=== PATIENT | female | born 1960 | race African-American/Black ===

== ENCOUNTER 2016-11-20 15:25 | Inpatient (IN) | payer MEDICARE, OTHER ==
[~2016-11-20] VITALS: Ht 152.4 cm; Wt 61.2 kg
[~2016-11-20 15:25] MED LIST: ALBUTEROL SULF8.5 GM INH; BP MED; DEPRESSION MED; FUROSEMIDE40 MG ORAL; HUMULIN R100 UNIT/1 SUBQ; HYDROCODON-ACE1 EA13 ORAL; ZOCOR10 MG ORAL; metroNIDAZOLE 500mg 100 ML IVPB SCH
[2016-11-20 20:00] VITALS: BP 132/75
[2016-11-20] MEDS ORDERED: METOPROLOL SUCC25 MG ORAL (20:05)
[2016-11-20] MEDS ORDERED: PAXIL20 MG ORAL (20:05)
[2016-11-20] MEDS ORDERED: ASPIRIN EC81 MG ORAL (20:29)
[2016-11-20] MEDS ORDERED: Hydromorphone 0.5mg/0.5ml inj IVP PRN (21:15)
[2016-11-20] MEDS: HYDROmorphone 1mg/ml Carpuject IVP PRN (22:01)
[2016-11-20] MEDS ORDERED: cefTRIAXone 1 GM in D5W 55 ML IVPB SCH (23:00)
[2016-11-21] MEDS: metroNIDAZOLE 500mg 100 ML IVPB SCH ×3 (00:15→17:09)
[2016-11-21] MEDS: NS w/KCl 20mEq 1,000 ML IV SCH ×3 (00:15→21:48)
[2016-11-21] MEDS: HYDROmorphone 1mg/ml Carpuject IVP PRN ×7 (02:00→22:21)
[2016-11-21 04:00] VITALS: BP 131/87
[2016-11-21] MEDS: NovoLOG Insulin Flexpen SUBQ SCH ×4 (06:00→17:29)
[2016-11-21] MEDS ORDERED: NovoLOG Insulin Flexpen SUBQ SCH (06:30)
[2016-11-21 07:15] LABS: BASOPHILS % (AUTO) 0.8 % (0.0-2.0); EOSINOPHILS % (AUTO) 5.8 % (0.0-3.0); LYMPHOCYTES % (AUTO) 33.3 % (20.0-45.0); MEAN CORPUSCULAR HEMOGLOBIN 30.9 PG (27.0-31.0); MEAN CORPUSCULAR HGB CONC 31.2 G/DL (32.0-36.0); MEAN CORPUSCULAR VOLUME 99 FL (80-99); MEAN PLATELET VOLUME 6.1 FL (6.5-10.1); MONOCYTES % (AUTO) 8.5 % (1.0-10.0); NEUTROPHILS % (AUTO) 51.6 % (45.0-75.0); PLATELET COUNT 226 K/UL (150-450); RED BLOOD COUNT 3.04 M/UL (4.20-5.40); RED CELL DISTRIBUTION WIDTH 18.9 % (11.6-14.8); WHITE BLOOD COUNT 5.9 K/UL (4.8-10.8)
[2016-11-21 07:40] LABS: ALBUMIN/GLOBULIN RATIO 1.2 (1.0-2.7); CALCIUM 9.6 mg/dL (8.6-10.2); CREATININE 1.2 mg/dL (0.5-0.9); GLOMERULAR FILTRATION RATE 56.1 mL/min (>60); PHOSPHORUS 3.4 mg/dL (2.5-4.8); POTASSIUM 3.8 mEQ/L (3.4-4.9); TOTAL PROTEIN 6.8 g/dL (6.6-8.7)
[2016-11-21 07:46] LABS: AMYLASE 61 U/L (10-110); LIPASE 19 U/L (< 60)
[2016-11-21 07:48] LABS: PROTHROMBIN TIME 10.2 SEC (9.30-11.50)
[2016-11-21 08:00] VITALS: BP 150/93
[2016-11-21] MEDS: Metoprolol 25mg tab ORAL SCH ×2 (09:05→21:30)
[2016-11-21] MEDS: PARoxetine 20mg tab ORAL SCH (09:05)
--- NOTE | 2016-11-21 09:05 | Diagnostic Imaging Report ---
Indications: Abdominal pain Technique: Continuous helical CT imaging of the abdomen and pelvis was performed with automatic exposure control following administration of oral and intravenous nonionic iodine contrast, on a Siemens sensation [address] scanner. Axial, coronal, and sagittal images were reconstructed at 5 mm slice thickness. CTDI volume(s): 18 mGy Total DLP: 785 mGy-cm Findings: Comparison: None Oral contrast has passed throughout the gastrointestinal tract to the level of the rectum. Entire tract nondilated. Contrast-filled long appendix unremarkable. No obvious mural thickening, adjacent stranding, extraluminal gas or fluid collection. Elongated serpiginous fluid-filled structure measuring 12 mm in maximal diameter resides in the left adnexal region and pelvic cul-de-sac. Liver demonstrates relative enlargement of the lateral segment of its left lobe. Gallbladder absent. Surgical clips in gallbladder fossa. Scattered arterial mural calcifications without obvious flow-limiting stenosis or occlusion, except that much of the left common iliac artery is obscured by artifact from lumbar fusion hardware. Uterus absent. Neither ovary identified. Surgical clip in left anterior hemipelvis. Remainder visualized abdominopelvic anatomy demonstrates no other obvious acute abnormality. Irregular pleural-based linear densities in both lung bases. Multilevel disc space narrowing with marginal osteophyte formation, vacuum phenomenon and lower lumbar, lower thoracic spine. Fusion hardware within the L4-5 and L5-S1 disc spaces. Bilateral pedicle screws within L4-S1, bridged by longitudinal and transverse rods at multiple levels. The central segment of the left L5 pedicle screw resides outside and adjacent to the left lateral margin of the L5 vertebral body. Small metallic density is present within the anterior epidural space of the spinal canal at L5-S1. Laminectomy defect is present at L5. IMPRESSION: No evidence of acute abdominopelvic disease Elongated fluid-filled structure in left adnexal region and pelvic cul-de-sac most likely represents unopacified small bowel loop. Hydrosalpinx not excludable. Previous cholecystectomy, hysterectomy, L4-S1 anterior and posterior fusion Arteriosclerosis without obvious flow-limiting abnormality, though with limitation of evaluation of left common iliac artery as described. Correlate clinically. Pulmonary bibasal subsegmental atelectasis versus scarring This correlates with [facility] preliminary report.
[2016-11-21] MEDS: cefTRIAXone 1 GM in D5W 55 ML IVPB SCH (10:06)
[2016-11-21 11:46] VITALS: BP 168/98
--- NOTE | 2016-11-21 12:17 | General Progress Note ---
Progress Note Progress Note Patient known to me from breast cancer surgery November 12, 2016 left partial mastectomy and axillary lymph node biopsy. Seen in clinic 2 days ago - healing nicely, pathology negative in nodes and no residual tumor in breast. Developed upper abdominal pain radiating to the back with emesis Abdomen soft, mild epigastric tenderness, no guarding or rebound Labs unremarkable CT abd+pelvis - no acute pathology, s/p cholecystectomy Imp. Epigastric pain radiating to the back with emesis R/O penetrating ulcer, pancreatitis despite neg CT and labs Rec: Increase Dilaudid to q3h prn Protonix 40mg IV GI evaluation, possible EGD - discussed with CATHLEEN Oseguera November 21, 2016 12:17
[2016-11-21] MEDS ORDERED: Hydromorphone 0.5mg/0.5ml inj IVP PRN (12:35)
[2016-11-21] MEDS ORDERED: Pantoprazole Inj IVP ONE (12:35)
[2016-11-21 16:03] VITALS: BP 184/107
--- NOTE | 2016-11-21 16:32 | GI Initial Consult Note ---
History of Present Illness General Date patient seen: November 21, 2016 Time patient seen: 16:31 Referring physician: NAHUN ALEXANDER Reason for Consultation: ABDOMINAL PAIN Present Illness HPI HISTORY OF PRESENT ILLNESS: The patient is a 56-year-old female in stable health with breast cancer surgery November 12, 2016 left partial mastectomy and axillary lymph node biopsy. Seen in clinic 2 days ago - healing nicely, pathology negative in nodes and no residual tumor in breast. GI CONSULT: HPI as noted above. GI consulted for abdominal pain possible ulcer. The patient developed upper abdominal pain radiating to the back with emesis. Abdomen soft, mild epigastric tenderness, no guarding or rebound Labs unremarkable CT abd+pelvis - no acute pathology, s/p cholecystectomy Home Meds Reported Medications Aspirin Ec* (ASPIRIN EC*) 81 Mg Tablet.dr, 81 MG ORAL DAILY, TAB 11/20/16 Metoprolol Succinate* (METOPROLOL SUCCINATE*) 25 Mg Tab.er.24h, 25 MG ORAL DAILY , TAB 11/20/16 Paroxetine Hcl* (PAXIL*) 20 Mg Tablet, 20 MG ORAL DAILY, TAB 11/20/16 [Depression Med] No Conflict Check, DAILY 05/15/16 Furosemide* (LASIX*) 40 Mg Tablet, 40 MG ORAL DAILY, TAB 05/15/16 Simvastatin (ZOCOR) 10 Mg Tablet, 10 MG ORAL BEDTIME, TAB 05/15/16 [Bp Med ] No Conflict Check, DAILY 05/15/16 Insulin Regular, Human (HUMULIN R) 100 Unit/1 Ml Vial, 10 UNITS SUBQ AM, VIAL 05/15/16 Discontinued Reported Medications Hydrocodone Bit/Acetaminophen 10-325* (HYDROCODON-ACETAMINOPHN 10-325*) 1 Each Tablet, 1 TAB ORAL Q4H, #40 TAB 0 Refills 11/14/16 Albuterol Sulfate* (ALBUTEROL SULFATE MDI*) 8.5 Gm Hfa.aer.ad, 2 PUFF INH Q3H, # 1 INH 0 Refills 11/12/16 Med list reviewed/reconciled: Yes Allergies: Coded Allergies: NO KNOWN ALLERGIES (Verified Allergy, Unknown, 05/15/16) Patient History History Provided By: Medical Record PMH Narrative OPERATIONS: Coronary artery stent, lumbar surgery, cholecystectomy, hysterectomy, valvoplasty, and mitral stenosis. IMPRESSION: 1. Invasive ductal carcinoma of left breast, two lesions adjacent to upper outer quadrant. 2. History of diabetes. 3. History of hypertension. 4. Status post neoadjuvant chemotherapy. Review of Systems All Other Systems: negative except mentioned in HPI Physical Exam Vital Signs Date Time Temp Pulse Resp B/P Pulse Ox O2 Delivery O2 Flow Rate FiO2 11/20/16 20:00 98.0 58 19 132/75 100 Room Air Sp02 EP Interpretation: reviewed Labs Laboratory Tests Test 11/21/16 05:35 White Blood Count 5.9 K/UL (4.8-10.8) Red Blood Count 3.04 M/UL (4.20-5.40) L Hemoglobin 9.4 G/DL (12.0-16.0) L Hematocrit 30.2 % (37.0-47.0) L Mean Corpuscular Volume 99 FL (80-99) Mean Corpuscular Hemoglobin 30.9 PG (27.0-31.0) Mean Corpuscular Hemoglobin Concent 31.2 G/DL (32.0-36.0) L Red Cell Distribution Width 18.9 % (11.6-14.8) H Platelet Count 226 K/UL (150-450) Mean Platelet Volume 6.1 FL (6.5-10.1) L Neutrophils (%) (Auto) 51.6 % (45.0-75.0) Lymphocytes (%) (Auto) 33.3 % (20.0-45.0) Monocytes (%) (Auto) 8.5 % (1.0-10.0) Eosinophils (%) (Auto) 5.8 % (0.0-3.0) H Basophils (%) (Auto) 0.8 % (0.0-2.0) Prothrombin Time 10.2 SEC (9.30-11.50) Prothromb Time International Ratio 1.0 (0.9-1.1) Activated Partial Thromboplast Time 26 SEC (23-33) Sodium Level 141 mEQ/L (135-145) Potassium Level 3.8 mEQ/L (3.4-4.9) Chloride Level 101 mEQ/L (98-107) Carbon Dioxide Level 25 mEQ/L (20-30) Anion Gap 15 (5-15) Blood Urea Nitrogen 10 mg/dL (7-23) Creatinine 1.2 mg/dL (0.5-0.9) H Estimat Glomerular Filtration Rate 56.1 mL/min (>60) Glucose Level 121 mg/dL (74-106) H Calcium Level 9.6 mg/dL (8.6-10.2) Phosphorus Level 3.4 mg/dL (2.5-4.8) Magnesium Level 2.0 mg/dL (1.7-2.5) Total Bilirubin 0.6 mg/dL (0.0-1.2) Aspartate Amino Transf (AST/SGOT) 14 U/L (5-40) Alanine Aminotransferase (ALT/SGPT) 7 U/L (3-33) Alkaline Phosphatase 120 U/L (35-104) H Total Protein 6.8 g/dL (6.6-8.7) Albumin 3.8 g/dL (3.5-5.2) Globulin 3.0 g/dL Albumin/Globulin Ratio 1.2 (1.0-2.7) Amylase Level 61 U/L (10-110) Lipase 19 U/L (< 60) General Appearance: well appearing, no apparent distress, alert Head: normocephalic EENT: normal ENT inspection Neck: supple Respiratory: normal breath sounds, no respiratory distress Cardiovascular: normal rate Gastrointestinal: normal inspection, non tender, soft Rectal: deferred Genitourinary: no CVA tenderness Musculoskeletal: normal inspection, back normal, digits/nails normal Neurologic: normal inspection, alert, oriented x3, responsive Psychiatric: normal inspection, judgement/insight normal, memory normal Skin: normal inspection, normal color, no rash, warm/dry Lymphatic: normal inspection, no adenopathy Current Medications Current Medications Medications (Trade) Dose Ordered Sig/Argenis Route PRN Reason Start Time Stop Time Status Last Admin Dose Admin Ceftriaxone Sodium/Dextrose (Rocephin/D5W) 55 ml @ 110 mls/hr Q24H IVPB 11/21/16 09:00 11/28/16 08:59 11/21/16 10:06 Clonidine HCl (Catapres) 0.1 mg Q6H PRN ORAL SBP > 160 11/21/16 15:00 12/21/16 14:59 11/21/16 16:00 Dextrose STAT PRN IV Hypoglycemia 11/20/16 21:15 12/20/16 21:14 Hydromorphone HCl (Dilaudid) 0.5 mg Q4H PRN IVP Mild Pain (Pain Scale 1-3) 11/21/16 12:35 11/27/16 21:14 Hydromorphone HCl (Dilaudid) 1 mg Q3H PRN IVP PAIN 4-10 11/21/16 13:00 11/28/16 12:59 11/21/16 16:00 Insulin Aspart Q6HR SUBQ 11/21/16 00:00 12/21/16 00:00 11/21/16 11:59 Metoprolol Tartrate 25 mg 25 mg Q12HR ORAL 11/21/16 09:00 12/21/16 08:59 11/21/16 09:05 Metronidazole (Flagyl) 100 ml @ 100 mls/hr Q8HR@0000,0800,1600 IVPB 11/21/16 00:00 11/28/16 00:00 11/21/16 08:44 Ondansetron HCl (Zofran) 4 mg Q4H PRN IVP Nausea & Vomiting 11/20/16 21:15 12/20/16 21:14 11/21/16 13:01 Pantoprazole (Protonix) 40 mg DAILY IVP 11/22/16 09:00 12/22/16 08:59 Paroxetine HCl (Paxil) 20 mg DAILY ORAL 11/21/16 09:00 12/21/16 08:59 11/21/16 09:05 Sodium Chloride (NS w/KCl 20mEq) 1,000 ml @ 75 mls/hr [id number] IV 11/20/16 23:00 12/20/16 22:59 11/21/16 11:56 GI: Plan Problems: (1) Epigastric pain (2) Encounter for diagnostic endoscopy (3) Breast cancer (4) Anemia (5) Alkaline phosphatase elevation Plan EGD scheduled for tomorrow. - NPO @ [place]. - hold all blood thinners. anemia work up OB stool uncollected, will consider colonoscopy Friday if positive. cont ppi monitor H&H, transfuse prn fu labs Discussed with Dr. Treviño. Thank you for referring this patient, we will follow. Jenni Livingston N.P. November 21, 2016 16:32
[2016-11-21 18:59] VITALS: BP 100/60
[2016-11-21 20:00] VITALS: BP 114/72
--- NOTE | 2016-11-21 23:12 | Consultation ---
History of Present Illness General Date patient seen: November 21, 2016 Referring physician: NAHUN ALEXANDER Reason for Consultation: ABDOMINAL PAIN Present Illness HPI 56 year old female with hx of DM, HTN breast cancer surgery November 12, 2016 left partial mastectomy and axillary lymph node biopsy was taken by paramedics to [facility] with CC of upper abdominal pain radiating to the back with emesis. The initial w/u at [place] was negative, she is transferred to [facility] for further evaluation and treatment Allergies: Coded Allergies: NO KNOWN ALLERGIES (Verified Allergy, Unknown, 05/15/16) Medication History Scheduled Aspirin Ec* (Aspirin Ec*), 81 MG ORAL DAILY, (Reported) Furosemide* (Lasix*), 40 MG ORAL DAILY, (Reported) Insulin Regular, Human (Humulin R), 10 UNITS SUBQ AM, (Reported) Metoprolol Succinate* (Metoprolol Succinate*), 25 MG ORAL DAILY, (Reported) Paroxetine Hcl* (Paxil*), 20 MG ORAL DAILY, (Reported) Simvastatin (Zocor), 10 MG ORAL BEDTIME, (Reported) [Bp Med ], DAILY, (Reported) [Depression Med], DAILY, (Reported) Discontinued Medications Albuterol Sulfate* (Albuterol Sulfate Mdi*), 2 PUFF INH Q3H, (Reported) Discontinued Reason: Pt stopped taking med Hydrocodone Bit/Acetaminophen 10-325* (Hydrocodon-Acetaminophn 10-325*), 1 TAB ORAL Q4H, (Reported) Discontinued Reason: Pt stopped taking med Patient History Healthcare decision maker pt A&Ox4 Resuscitation status Full Code Advanced Directive on File No Past Medical/Surgical History Past Medical/Surgical History: (1) Diabetes mellitus, type II (2) CAD (coronary artery disease) (3) Breast cancer Review of Systems Gastrointestinal: Reports: abdominal pain Physical Exam General Appearance: WD/WN, cachetic Lines, tubes and drains: peripheral HEENT: normocephalic, atraumatic Neck: non-tender, normal alignment Respiratory/Chest: chest wall non-tender, lungs clear Cardiovascular/Chest: normal peripheral pulses Abdomen: normal bowel sounds Genitourinary/Rectal: normal genital exam Extremities: normal range of motion Skin Exam: normal pigmentation Neurologic: forepart reducer II-XII grossly normal Last 24 Hour Vital Signs Date Time Temp Pulse Resp B/P Pulse Ox O2 Delivery O2 Flow Rate FiO2 11/21/16 21:30 52 114/72 11/21/16 20:00 97.0 46 18 114/72 98 Room Air 11/21/16 18:59 60 16 100/60 100 Room Air 11/21/16 16:30 97.3 11/21/16 16:03 97.3 54 20 184/107 98 Room Air 11/21/16 16:00 180/100 11/21/16 11:46 97.5 50 20 168/98 98 Room Air 11/21/16 10:26 97.9 11/21/16 09:05 54 131/87 11/21/16 08:00 97.3 69 20 150/93 97 Room Air 11/21/16 04:00 97.9 54 19 131/87 99 Room Air Intake and Output 11/20/16 11/21/16 19:00 07:00 Intake Total 535 ml Balance 535 ml IV Total 535 ml # Voids 4 # Bowel Movements 2 Laboratory Tests Test 11/21/16 05:35 White Blood Count 5.9 K/UL (4.8-10.8) Red Blood Count 3.04 M/UL (4.20-5.40) L Hemoglobin 9.4 G/DL (12.0-16.0) L Hematocrit 30.2 % (37.0-47.0) L Mean Corpuscular Volume 99 FL (80-99) Mean Corpuscular Hemoglobin 30.9 PG (27.0-31.0) Mean Corpuscular Hemoglobin Concent 31.2 G/DL (32.0-36.0) L Red Cell Distribution Width 18.9 % (11.6-14.8) H Platelet Count 226 K/UL (150-450) Mean Platelet Volume 6.1 FL (6.5-10.1) L Neutrophils (%) (Auto) 51.6 % (45.0-75.0) Lymphocytes (%) (Auto) 33.3 % (20.0-45.0) Monocytes (%) (Auto) 8.5 % (1.0-10.0) Eosinophils (%) (Auto) 5.8 % (0.0-3.0) H Basophils (%) (Auto) 0.8 % (0.0-2.0) Prothrombin Time 10.2 SEC (9.30-11.50) Prothromb Time International Ratio 1.0 (0.9-1.1) Activated Partial Thromboplast Time 26 SEC (23-33) Sodium Level 141 mEQ/L (135-145) Potassium Level 3.8 mEQ/L (3.4-4.9) Chloride Level 101 mEQ/L (98-107) Carbon Dioxide Level 25 mEQ/L (20-30) Anion Gap 15 (5-15) Blood Urea Nitrogen 10 mg/dL (7-23) Creatinine 1.2 mg/dL (0.5-0.9) H Estimat Glomerular Filtration Rate 56.1 mL/min (>60) Glucose Level 121 mg/dL (74-106) H Calcium Level 9.6 mg/dL (8.6-10.2) Phosphorus Level 3.4 mg/dL (2.5-4.8) Magnesium Level 2.0 mg/dL (1.7-2.5) Total Bilirubin 0.6 mg/dL (0.0-1.2) Aspartate Amino Transf (AST/SGOT) 14 U/L (5-40) Alanine Aminotransferase (ALT/SGPT) 7 U/L (3-33) Alkaline Phosphatase 120 U/L (35-104) H Total Protein 6.8 g/dL (6.6-8.7) Albumin 3.8 g/dL (3.5-5.2) Globulin 3.0 g/dL Albumin/Globulin Ratio 1.2 (1.0-2.7) Amylase Level 61 U/L (10-110) Lipase 19 U/L (< 60) Height (Feet): 5 Weight (Pounds): 135 Medications Current Medications Medications (Trade) Dose Ordered Sig/Argenis Route PRN Reason Start Time Stop Time Status Last Admin Dose Admin Ceftriaxone Sodium/Dextrose (Rocephin/D5W) 55 ml @ 110 mls/hr Q24H IVPB 11/21/16 09:00 11/28/16 08:59 11/21/16 10:06 Clonidine HCl (Catapres) 0.1 mg Q6H PRN ORAL SBP > 160 11/21/16 15:00 12/21/16 14:59 11/21/16 16:00 Dextrose STAT PRN IV Hypoglycemia 11/20/16 21:15 12/20/16 21:14 Hydromorphone HCl (Dilaudid) 0.5 mg Q4H PRN IVP Mild Pain (Pain Scale 1-3) 11/21/16 12:35 11/27/16 21:14 Hydromorphone HCl (Dilaudid) 1 mg Q3H PRN IVP PAIN 4-10 11/21/16 13:00 11/28/16 12:59 11/21/16 22:21 Insulin Aspart Q6HR SUBQ 11/21/16 00:00 12/21/16 00:00 11/21/16 17:29 Metoprolol Tartrate 25 mg 25 mg Q12HR ORAL 11/21/16 09:00 12/21/16 08:59 11/21/16 21:30 Metronidazole (Flagyl) 100 ml @ 100 mls/hr Q8HR@0000,0800,1600 IVPB 11/21/16 00:00 11/28/16 00:00 11/21/16 17:09 Ondansetron HCl (Zofran) 4 mg Q4H PRN IVP Nausea & Vomiting 11/20/16 21:15 12/20/16 21:14 11/21/16 13:01 Pantoprazole (Protonix) 40 mg DAILY IVP 11/22/16 09:00 12/22/16 08:59 Paroxetine HCl (Paxil) 20 mg DAILY ORAL 11/21/16 09:00 12/21/16 08:59 11/21/16 09:05 Sodium Chloride (NS w/KCl 20mEq) 1,000 ml @ 75 mls/hr [id number] IV 11/20/16 23:00 12/20/16 22:59 11/21/16 21:48 Assessment/Plan Problem List: (1) Abdominal pain ICD Codes: R10.9 - Unspecified abdominal pain SNOMED: 23076022 (2) Nausea & vomiting ICD Codes: R11.2 - Nausea with vomiting, unspecified SNOMED: 55041292 (3) CAD (coronary artery disease) ICD Codes: I25.10 - Atherosclerotic heart disease of tetlin coronary artery without angina pectoris SNOMED: 35114129 (4) Breast cancer ICD Codes: C50.919 - Malignant neoplasm of unspecified site of unspecified female breast SNOMED: 874873328 (5) HTN (hypertension) ICD Codes: I10 - Essential (primary) hypertension SNOMED: 31361934 Assessment/Plan NPO IV fluids symptomatic treatment GI evaluation sliding scale, with insulin coverage. check electrolytes, amylase in am WILY KABA November 21, 2016 23:12
[2016-11-22] VITALS (8 sets, daily range): BP systolic 110–151; BP diastolic 62–87
[2016-11-22] MEDS: metroNIDAZOLE 500mg 100 ML IVPB SCH ×3 (00:20→16:25)
[2016-11-22] MEDS: NovoLOG Insulin Flexpen SUBQ SCH ×4 (00:25→18:00)
--- NOTE | 2016-11-22 01:16 | History and Physical Report ---
DATE OF ADMISSION: 11/21/2016 CHIEF COMPLAINT: The patient is a 56-year-old female, who presents with a chief complaint of stomach pain, nausea, and vomiting. HISTORY OF PRESENT ILLNESS: The patient has a history of invasive ductal cell cancer of the left breast. The patient is status post lumpectomy on 11/12/2016 at [facility]. The patient is currently undergoing chemotherapy with Dr. Gayle. The patient states that she began to experience abdominal pain on 11/18/2016. This has been increasing over the last four days. The patient then began to experience nausea and vomiting yesterday. The patient initially presented to [facility] emergency room. A CT scan of the abdomen was essentially within normal limits. The patient is transferred to [facility] for insurance purposes. The patient was admitted for epigastric pain, nausea, and vomiting. PAST MEDICAL HISTORY: Significant for, 1. Invasive ductal cell carcinoma of the left breast, diagnosed in April 2016. The patient is status post lumpectomy and is currently on chemotherapy by Dr. Gayle. 2. Type 2 diabetes. 3. Hypertension. 4. Asthma. 5. Coronary artery disease, status post stent placement x2. 6. Hypercholesterolemia. 7. Chronic renal failure. PAST SURGICAL HISTORY: Significant for, 1. Laparoscopic cholecystectomy in 1997. 2. Lumbar spinal fusion in 2013. 3. Port-A-Cath placement for chemotherapy in 2015. 4. Left breast lumpectomy and axillary lymph node dissection on 11/12/2016. CURRENT MEDICATIONS: 1. Aspirin 81 mg one tablet p.o. daily. 2. Lasix 40 mg one tablet p.o. daily. 3. Regular insulin 10 units subcutaneously every morning. 4. Toprol 25 mg one tablet p.o. daily. 5. Paxil 20 mg one tablet p.o. daily. 6. Zocor 10 mg one tablet p.o. at bedtime. ALLERGIES: No known drug allergies. SOCIAL HISTORY: The patient is single. The patient is disabled. The patient denies tobacco use having quit 10 years ago. The patient admits to rare alcohol use. REVIEW OF SYSTEMS: Constitutional: The patient denies weight loss or weight gain. The patient denies fevers or chills. HEENT: The patient denies ear or throat pain. Cardiovascular: The patient denies palpitations or chest pain. Chest: The patient denies wheezing or shortness of breath. Abdomen: The patient complains of epigastric pain, nausea, and vomiting as above. The patient denies diarrhea or constipation. Genitourinary: The patient denies dysuria or increased frequency of urination. Neuromuscular: The patient seizures or generalized weakness. PHYSICAL EXAMINATION: VITAL SIGNS: Temperature 97.9 degrees, respirations 20, pulse 50 to 54, and blood pressure 131/87. GENERAL: The is a well-developed and well-nourished female, in no apparent distress. HEENT: Eyes, pupils are equal and responsive to light and accommodation. Extraocular movements are intact. NECK: Supple without lymphadenopathy. CHEST: Lungs are clear to auscultation bilaterally without wheezes or rales. CARDIOVASCULAR: Regular rhythm and rate. S1 and S2 are normal without murmurs, rubs, or gallops. ABDOMEN: Soft and nondistended with positive bowel sounds. There is tenderness to palpation in the epigastric region. There is no rebound or guarding noted. EXTREMITIES: Negative for clubbing, cyanosis, or edema. RECTAL: Refused. GENITAL: Refused. NEUROLOGIC: Cranial nerves II through XII are grossly intact without focal deficits. Motor strength is 5/5 bilaterally. Deep tendon reflexes are 2+ plantar. LABORATORY STUDIES: WBC 5.9, hemoglobin 9.4, hematocrit 30.2, and platelets 226,000. Sodium 141, potassium 3.8, chloride 101, CO2 25, BUN 10, creatinine 1.2, and glucose 121. Alkaline phosphatase 120. CT scan of the abdomen and pelvis was reported as no acute abdominopelvic disease. ASSESSMENT: This is a 56-year-old female. 1. Epigastric pain. 2. Nausea and vomiting. 3. Left breast cancer. 4. Coronary artery disease. 5. Diabetes type 2. 6. Hypertension. 7. Hypercholesterolemia. 8. Chronic renal failure. TREATMENT: 1. Epigastric pain/nausea. A Gastroenterology consultation has been obtained with Dr. Jared Treviño. We will follow recommendations of Gastroenterology. The patient may require endoscopy during this hospitalization. 2. Left breast cancer. The patient is status post lumpectomy. The patient is currently undergoing chemotherapy by Dr. Gayle. We will follow recommendations of Hematology/Oncology. 3. Coronary artery disease. The patient is status post stent placement x2. 4. Hypertension. Continue metoprolol as above. 5. Hypercholesteremia. Continue Zocor as above. 6. Chronic renal failure. Sammy Chin M.D. DR: FILIPPO JOB#: [id number] CC:
[2016-11-22] MEDS: HYDROmorphone 1mg/ml Carpuject IVP PRN ×7 (01:34→21:32)
[2016-11-22 07:30] LABS: EOSINOPHILS % (AUTO) 7.2 % (0.0-3.0); LYMPHOCYTES % (AUTO) 33.9 % (20.0-45.0); MEAN CORPUSCULAR HEMOGLOBIN 30.9 PG (27.0-31.0); MEAN CORPUSCULAR HGB CONC 31.1 G/DL (32.0-36.0); MEAN CORPUSCULAR VOLUME 100 FL (80-99); MEAN PLATELET VOLUME 6.8 FL (6.5-10.1); MONOCYTES % (AUTO) 7.9 % (1.0-10.0); NEUTROPHILS % (AUTO) 49.9 % (45.0-75.0); PLATELET COUNT 219 K/UL (150-450); RED CELL DISTRIBUTION WIDTH 18.6 % (11.6-14.8); WHITE BLOOD COUNT 5.4 K/UL (4.8-10.8)
[2016-11-22 07:41] LABS: INR 1.1 (0.9-1.1); PROTHROMBIN TIME 10.7 SEC (9.30-11.50)
[2016-11-22 08:11] LABS: CALCIUM 9.3 mg/dL (8.6-10.2); CREATININE 1.2 mg/dL (0.5-0.9); GLOMERULAR FILTRATION RATE 56.1 mL/min (>60); POTASSIUM 4.1 mEQ/L (3.4-4.9)
[2016-11-22] MEDS: Pantoprazole Inj IVP SCH (08:34)
[2016-11-22] MEDS: Metoprolol 25mg tab ORAL SCH ×2 (08:43→21:36)
[2016-11-22] MEDS: PARoxetine 20mg tab ORAL SCH (08:45)
[2016-11-22] MEDS: cefTRIAXone 1 GM in D5W 55 ML IVPB SCH (09:40)
--- NOTE | 2016-11-22 09:56 | Pulmonology Progress Note ---
Assessment/Plan Assessment/Plan ASSESSMENT epigastric pain left breast Ca s/p partial mastectomy with axillary node biopsy anemia elevated alkaline phosphate HTN DM PLAN OF CARE MS floor pain management CT A/P No evidence of acute abdominopelvic disease empiric antibiotics epigastric pain with emesis and radiation to the back R/O ulcer, pancreatitis ( neg CT and labs) GI follows elevated CEA EGD today stool OB not collected yet, if positive. GI will consider colonoscopy IVF anemia workup with stable iron, continue PPI monitor HH and transfuse prn surgery follows s/p recent partial mastectomy, pathology negative in nodes and no residual tumor in breast BP management with BB and optimize as needed BS management with SS of insulin case discussed and evaluated by supervising physician Subjective Allergies: Coded Allergies: NO KNOWN ALLERGIES (Verified Allergy, Unknown, 05/15/16) Subjective still with intermittent abdominal pain , radiating to the back no n/v/ EGD pending for today Objective Last 24 Hour Vital Signs Date Time Temp Pulse Resp B/P Pulse Ox O2 Delivery O2 Flow Rate FiO2 11/22/16 08:43 75 167/95 11/22/16 04:00 97.3 59 20 110/72 99 11/22/16 00:00 97.7 47 20 114/71 100 Room Air 11/21/16 21:30 52 114/72 11/21/16 20:00 97.0 46 18 114/72 98 Room Air 11/21/16 18:59 60 16 100/60 100 Room Air 11/21/16 16:30 97.3 11/21/16 16:03 97.3 54 20 184/107 98 Room Air 11/21/16 16:00 180/100 11/21/16 11:46 97.5 50 20 168/98 98 Room Air 11/21/16 10:26 97.9 Intake and Output 11/21/16 11/22/16 19:00 07:00 Intake Total 555 ml 875 ml Balance 555 ml 875 ml Intake Oral 480 ml IV Total 75 ml 875 ml # Voids 2 3 # Bowel Movements 3 General Appearance: no acute distress, other - A/A/O x 3 AA female in NAD HEENT: normocephalic, atraumatic, anicteric Respiratory/Chest: lungs clear, no respiratory distress, no accessory muscle use Breasts: other - left breast with partial mastectomy, healing Cardiovascular: normal peripheral pulses, normal rate, regular rhythm, no JVD Abdomen: normal bowel sounds - diffused tenderness, no rebound, no guarding , no organomegaly Extremities: no edema Neurologic/Psychiatric: no motor/sensory deficits, alert, oriented x 3, responsive, normal mood/affect Musculoskeletal: normal muscle bulk Microbiology Date/Time Source Procedure Growth Status 11/21/16 13:00 Stool Clostridium difficile Toxin Assay - Final Complete 11/21/16 00:00 Rectum VRE Culture - Final Enterococcus Faecium - Vre Complete Laboratory Tests 11/22/16 05:05: White Blood Count 5.4, Red Blood Count 2.80L, Hemoglobin 8.6L, Hematocrit 27.8L , Mean Corpuscular Volume 100H, Mean Corpuscular Hemoglobin 30.9, Mean Corpuscular Hemoglobin Concent 31.1L, Red Cell Distribution Width 18.6H, Platelet Count 219, Mean Platelet Volume 6.8, Neutrophils (%) (Auto) 49.9, Lymphocytes (%) (Auto) 33.9, Monocytes (%) (Auto) 7.9, Eosinophils (%) (Auto) 7.2H, Basophils (%) (Auto) 1.0, Reticulocyte Count [Pending], Prothrombin Time 10.7, Prothromb Time International Ratio 1.1, Activated Partial Thromboplast Time 27, Sodium Level 136, Potassium Level 4.1, Chloride Level 99, Carbon Dioxide Level 22, Anion Gap 15, Blood Urea Nitrogen 13, Creatinine 1.2H, Estimat Glomerular Filtration Rate 56.1, Glucose Level 90, Calcium Level 9.3, Iron Level 46, Total Iron Binding Capacity 275, Percent Iron Saturation 17, Unsaturated Iron Binding 229, Ferritin 53, Carcinoembryonic Antigen 4.8H, Vitamin B12 Level 540, Folate [Pending], Thyroid Stimulating Hormone (TSH) 2.000 , Free Thyroxine 1.18 Current Medications Medications (Trade) Dose Ordered Sig/Argenis Route PRN Reason Start Time Stop Time Status Last Admin Dose Admin Ceftriaxone Sodium/Dextrose (Rocephin/D5W) 55 ml @ 110 mls/hr Q24H IVPB 11/21/16 09:00 11/28/16 08:59 11/22/16 09:40 Clonidine HCl (Catapres) 0.1 mg Q6H PRN ORAL SBP > 160 11/21/16 15:00 12/21/16 14:59 11/21/16 16:00 Dextrose STAT PRN IV Hypoglycemia 11/20/16 21:15 12/20/16 21:14 Hydromorphone HCl (Dilaudid) 0.5 mg Q4H PRN IVP Mild Pain (Pain Scale 1-3) 11/21/16 12:35 11/27/16 21:14 Hydromorphone HCl (Dilaudid) 1 mg Q3H PRN IVP PAIN 4-10 11/21/16 13:00 11/28/16 12:59 11/22/16 08:33 Insulin Aspart Q6HR SUBQ 11/21/16 00:00 12/21/16 00:00 11/22/16 00:25 Metoprolol Tartrate 25 mg 25 mg Q12HR ORAL 11/21/16 09:00 12/21/16 08:59 11/22/16 08:43 Metronidazole (Flagyl) 100 ml @ 100 mls/hr Q8HR@0000,0800,1600 IVPB 11/21/16 00:00 11/28/16 00:00 11/22/16 08:04 Ondansetron HCl (Zofran) 4 mg Q4H PRN IVP Nausea & Vomiting 11/20/16 21:15 12/20/16 21:14 11/21/16 13:01 Pantoprazole (Protonix) 40 mg DAILY IVP 11/22/16 09:00 12/22/16 08:59 11/22/16 08:34 Paroxetine HCl (Paxil) 20 mg DAILY ORAL 11/21/16 09:00 12/21/16 08:59 11/21/16 09:05 Sodium Chloride (NS w/KCl 20mEq) 1,000 ml @ 75 mls/hr [id number] IV 11/20/16 23:00 12/20/16 22:59 11/21/16 21:48 Catalina Flores NP ([facility]) November 22, 2016 09:56
--- NOTE | 2016-11-22 10:56 | General Progress Note ---
Progress Note Progress Note Continues afebrile and having persistent epigastric pain radiating to the back. Abdomen soft, scant epigastric tenderness Imp. Epigastric pain radiating to back ? etiology Plan: GI to evaluate and do EGD today CATHLEEN WAGNER November 22, 2016 10:56
--- NOTE | 2016-11-22 13:15 | Pre-Procedure Note/Attestation ---
Pre-Procedure Note/Attestation Complete Prior to Procedure Planned Procedure: not applicable Procedure Narrative: egd Indications for Procedure Pre-Operative Diagnosis: anemia, abd pain Attestation I attest that I discussed the nature of the procedure; its benefits; risks and complications; and alternatives (and the risks and benefits of such alternatives ), prior to the procedure, with the patient (or the patient's legal life assurance representative). I attest that, if there was a reasonable possibility of needing a blood transfusion, the patient (or the patient's legal life assurance representative) was given the [facility] standardized written summary, pursuant to the Juanjose Angelica Blood Safety Act ([place] Health and Safety Code # 1645, as amended). I attest that I re-evaluated the patient just prior to the surgery and that there has been no change in the patient's H&P, except as documented below: CHRISTIANO MCRAE November 22, 2016 13:15
[2016-11-22] MEDS ORDERED: NS 550ML IV ONE (13:25)
[2016-11-22] MEDS ORDERED: Propofol 10mg/ml 20ml IV ONE (13:25)
--- NOTE | 2016-11-22 13:50 | Anethesia Preoperative Eval ---
Anesthesia Pre-op PMH/ROS General Date of Evaluation: November 22, 2016 Time of Evaluation: 13:24 Anesthesiologist: elise ASA Score: ASA 3 Mallampati Score Class I : Soft palate, uvula, fauces, pillars visible Class II: Soft palate, uvula, fauces visible Class III: Soft palate, base of uvula visible Class IV: Only hard plate visible Mallampati Classification: Class II Surgeon: yohannes Diagnosis: abdominal pain Surgical Procedure: egd Anesthesia History: none Allergies: Coded Allergies: NO KNOWN ALLERGIES (Verified Allergy, Unknown, 05/15/16) Past Medical History Cardiovascular: Reports: CAD Endocrine: Reports: DM Musculoskeletal/Integumentary: Reports: DDD - spine fuion Other: other - breast Ca, chemo Hep C Anesthesia Pre-op Phys. Exam Physician Exam Last Vital Signs Date Time Temp Pulse Resp B/P Pulse Ox O2 Delivery O2 Flow Rate FiO2 11/22/16 12:15 97.6 50 19 140/87 99 Room Air Airway Exam Mallampati Score: Class II Teeth: missing Anesthesia Pre-op A/P Labs Hematology Test 11/22/16 05:05 White Blood Count 5.4 K/UL (4.8-10.8) Red Blood Count 2.80 M/UL (4.20-5.40) L Hemoglobin 8.6 G/DL (12.0-16.0) L Hematocrit 27.8 % (37.0-47.0) L Mean Corpuscular Volume 100 FL (80-99) H Mean Corpuscular Hemoglobin 30.9 PG (27.0-31.0) Mean Corpuscular Hemoglobin Concent 31.1 G/DL (32.0-36.0) L Red Cell Distribution Width 18.6 % (11.6-14.8) H Platelet Count 219 K/UL (150-450) Mean Platelet Volume 6.8 FL (6.5-10.1) Neutrophils (%) (Auto) 49.9 % (45.0-75.0) Lymphocytes (%) (Auto) 33.9 % (20.0-45.0) Monocytes (%) (Auto) 7.9 % (1.0-10.0) Eosinophils (%) (Auto) 7.2 % (0.0-3.0) H Basophils (%) (Auto) 1.0 % (0.0-2.0) Reticulocyte Count 3.3 % (0.0-2.0) H Coagulation Test 11/22/16 05:05 Prothrombin Time 10.7 SEC (9.30-11.50) Prothromb Time International Ratio 1.1 (0.9-1.1) Activated Partial Thromboplast Time 27 SEC (23-33) Chemistry Test 11/22/16 05:05 Sodium Level 136 mEQ/L (135-145) Potassium Level 4.1 mEQ/L (3.4-4.9) Chloride Level 99 mEQ/L (98-107) Carbon Dioxide Level 22 mEQ/L (20-30) Anion Gap 15 (5-15) Blood Urea Nitrogen 13 mg/dL (7-23) Creatinine 1.2 mg/dL (0.5-0.9) H Estimat Glomerular Filtration Rate 56.1 mL/min (>60) Glucose Level 90 mg/dL (74-106) Calcium Level 9.3 mg/dL (8.6-10.2) Iron Level 46 ug/dL (37-145) Total Iron Binding Capacity 275 ug/dL (250-400) Percent Iron Saturation 17 % (15-50) Unsaturated Iron Binding 229 ug/dL (112-346) Ferritin 53 ng/mL (13-150) Carcinoembryonic Antigen 4.8 ng/mL H Vitamin B12 Level 540 pg/mL (211-946) Folate Pending Thyroid Stimulating Hormone (TSH) 2.000 uIU/mL (0.300-4.500) Free Thyroxine 1.18 ng/dL (0.86-1.85) Risk Assessment & Plan Plan: propofol Status Change Before Surgery: Maninder Salvador MD November 22, 2016 13:50
--- NOTE | 2016-11-22 13:51 | Immediate Post-Op Evaluation ---
Immediate Post-Op Evalulation Immediate Post-Op Evalulation Date of Evaluation: November 22, 2016 Time of Evaluation: 14:10 IV Fluids: 400 Blood Pressure Systolic: 132 Blood Pressure Diastolic: 67 Pulse Rate: 67 Respiratory Rate: 24 O2 Sat by Pulse Oximetry: 100 Temperature (Fahrenheit): 97.1 Pain Score (1-10): 0 Nausea: No Vomiting: No Complications none Patient Status: awake, patent, none Hydration Status: adequate Maninder Garduno MD November 22, 2016 13:51
--- NOTE | 2016-11-22 13:52 | 48 Hour Post Anesthesia Eval ---
Post Anesthesia Evaluation Date of Evaluation: November 22, 2016 Time of Evaluation: 14:30 Blood Pressure Systolic: 147 0: 76 Pulse Rate: 49 Respiratory Rate: 20 Temperature (Fahrenheit): 97.4 O2 Sat by Pulse Oximetry: 100 Airway: patent Nausea: No Vomiting: No Pain Intensity: 0 Hydration Status: adequate Cardiopulmonary Status: stable Mental Status/LOC: patient returned to baseline Follow-up Care/Observations: n/a Post-Anesthesia Complications: tolerated well Follow-up care needed: N/A Maninder Garduno MD November 22, 2016 13:52
[2016-11-22] MEDS: NS w/KCl 20mEq 1,000 ML IV SCH (14:50)
--- NOTE | 2016-11-22 17:52 | Internal Med Progress Note ---
Subjective Date of Service: November 22, 2016 Physician Name Sammy Fall Attending Physician Nicholas Kovacs MD Current Medications Medications (Trade) Dose Ordered Sig/Argenis Route PRN Reason Start Time Stop Time Status Last Admin Dose Admin Ceftriaxone Sodium/Dextrose (Rocephin/D5W) 55 ml @ 110 mls/hr Q24H IVPB 11/21/16 09:00 11/28/16 08:59 11/22/16 09:40 Clonidine HCl 0.1 mg 0.1 mg Q6H PRN ORAL SBP > 160 11/21/16 15:00 12/21/16 14:59 11/21/16 16:00 Dextrose STAT PRN IV Hypoglycemia 11/20/16 21:15 12/20/16 21:14 Diphenhydramine HCl (Benadryl) 25 mg Q6H PRN IVP Itching 11/22/16 16:45 12/22/16 16:44 Heparin Sodium (Porcine) (Heparin 5000 units/ml) 5,000 units EVERY 12 HOURS SUBQ 11/22/16 21:00 12/22/16 20:59 Hydromorphone HCl (Dilaudid) 0.5 mg Q4H PRN IVP Mild Pain (Pain Scale 1-3) 11/21/16 12:35 11/27/16 21:14 Hydromorphone HCl (Dilaudid) 1 mg Q3H PRN IVP PAIN 4-10 11/21/16 13:00 11/28/16 12:59 11/22/16 14:49 Insulin Aspart Q6HR SUBQ 11/21/16 00:00 12/21/16 00:00 11/22/16 00:25 Metoprolol Tartrate 25 mg 25 mg Q12HR ORAL 11/21/16 09:00 12/21/16 08:59 11/22/16 08:43 Metronidazole (Flagyl) 100 ml @ 100 mls/hr Q8HR@0000,0800,1600 IVPB 11/21/16 00:00 11/28/16 00:00 11/22/16 16:25 Ondansetron HCl (Zofran) 4 mg Q4H PRN IVP Nausea & Vomiting 11/20/16 21:15 12/20/16 21:14 11/21/16 13:01 Pantoprazole (Protonix) 40 mg DAILY IVP 11/22/16 09:00 12/22/16 08:59 11/22/16 08:34 Paroxetine HCl (Paxil) 20 mg DAILY ORAL 11/21/16 09:00 12/21/16 08:59 11/21/16 09:05 Sodium Chloride (NS w/KCl 20mEq) 1,000 ml @ 75 mls/hr [id number] IV 11/20/16 23:00 12/20/16 22:59 11/22/16 14:50 Sodium Chloride (Sodium Chloride 1000ml bag) 1,000 ml @ 10 mls/hr Q24H IVLG 11/22/16 13:52 11/22/16 18:30 Allergies: Coded Allergies: NO KNOWN ALLERGIES (Verified Allergy, Unknown, 05/15/16) ROS Limited/Unobtainable: No Constitutional: Reports: no symptoms HEENT: Reports: no symptoms Cardiovascular: Reports: no symptoms Respiratory: Reports: no symptoms Gastrointestinal/Abdominal: Reports: abdominal pain Genitourinary: Reports: no symptoms Neurologic/Psychiatric: Reports: no symptoms Subjective 56 YO F admitted with epigastric pain. S/P endoscopt Objective Last Vital Signs Date Time Temp Pulse Resp B/P Pulse Ox O2 Delivery O2 Flow Rate FiO2 11/22/16 16:15 98.1 52 21 132/67 100 Room Air 11/22/16 14:05 2.0 Laboratory Tests Test 11/22/16 05:05 White Blood Count 5.4 K/UL (4.8-10.8) Red Blood Count 2.80 M/UL (4.20-5.40) L Hemoglobin 8.6 G/DL (12.0-16.0) L Hematocrit 27.8 % (37.0-47.0) L Mean Corpuscular Volume 100 FL (80-99) H Mean Corpuscular Hemoglobin 30.9 PG (27.0-31.0) Mean Corpuscular Hemoglobin Concent 31.1 G/DL (32.0-36.0) L Red Cell Distribution Width 18.6 % (11.6-14.8) H Platelet Count 219 K/UL (150-450) Mean Platelet Volume 6.8 FL (6.5-10.1) Neutrophils (%) (Auto) 49.9 % (45.0-75.0) Lymphocytes (%) (Auto) 33.9 % (20.0-45.0) Monocytes (%) (Auto) 7.9 % (1.0-10.0) Eosinophils (%) (Auto) 7.2 % (0.0-3.0) H Basophils (%) (Auto) 1.0 % (0.0-2.0) Reticulocyte Count 3.3 % (0.0-2.0) H Prothrombin Time 10.7 SEC (9.30-11.50) Prothromb Time International Ratio 1.1 (0.9-1.1) Activated Partial Thromboplast Time 27 SEC (23-33) Sodium Level 136 mEQ/L (135-145) Potassium Level 4.1 mEQ/L (3.4-4.9) Chloride Level 99 mEQ/L (98-107) Carbon Dioxide Level 22 mEQ/L (20-30) Anion Gap 15 (5-15) Blood Urea Nitrogen 13 mg/dL (7-23) Creatinine 1.2 mg/dL (0.5-0.9) H Estimat Glomerular Filtration Rate 56.1 mL/min (>60) Glucose Level 90 mg/dL (74-106) Calcium Level 9.3 mg/dL (8.6-10.2) Iron Level 46 ug/dL (37-145) Total Iron Binding Capacity 275 ug/dL (250-400) Percent Iron Saturation 17 % (15-50) Unsaturated Iron Binding 229 ug/dL (112-346) Ferritin 53 ng/mL (13-150) Carcinoembryonic Antigen 4.8 ng/mL H Vitamin B12 Level 540 pg/mL (211-946) Folate Pending Thyroid Stimulating Hormone (TSH) 2.000 uIU/mL (0.300-4.500) Free Thyroxine 1.18 ng/dL (0.86-1.85) Microbiology Date/Time Source Procedure Growth Status 11/21/16 13:00 Stool Clostridium difficile Toxin Assay - Final Complete 11/21/16 00:00 Rectum VRE Culture - Final Enterococcus Faecium - Vre Complete Intake and Output 11/21/16 11/22/16 19:00 07:00 Intake Total 555 ml 875 ml Balance 555 ml 875 ml Intake Oral 480 ml IV Total 75 ml 875 ml # Voids 2 3 # Bowel Movements 3 Objective General: alert, cooperative, no distress, appears stated age Head: normocephalic, without obvious abnormality, atraumatic Eyes: conjunctivae/corneas clear. PERRL, EOM's intact Throat: lips, mucosa, and tongue normal. MMM Neck: supple, symmetrical, trachea midline, and no JVD Lungs: clear to auscultation bilaterally Heart: regular rate and rhythm, S1, S2 normal, no murmur, click, rub or gallop Abdomen: soft, tender to palp epigastric, non-distended, bowel sounds normal; no masses or organomegaly Extremities: extremities normal, atraumatic, no cyanosis or edema Pulses: 2+ and symmetric Skin: skin color, texture, turgor normal; no rashes or lesions Neurologic: grossly normal, no focal deficits Assessment/Plan Problem List: (1) CAD (coronary artery disease) (2) Diabetes mellitus, type II Assessment & Plan: cont novolog sliding scale. (3) HTN (hypertension) Assessment & Plan: cont clonidine and lopressor. (4) Hypercholesteremia (5) Renal failure (6) Nausea & vomiting (7) Epigastric pain Assessment & Plan: S/P endoscopy 11/22/16-see GI note. See surgery note. (8) Breast cancer Status: unchanged SAMMY FALL November 22, 2016 17:52
[2016-11-22] MEDS: DiphenhydrAMINE 50mg/ml Inj IVP PRN (21:31)
[2016-11-22] MEDS: Heparin 5000 units/ml inj SUBQ SCH (21:39)
[2016-11-23] MEDS: HYDROmorphone 1mg/ml Carpuject IVP PRN ×8 (00:33→23:48)
[2016-11-23] MEDS: metroNIDAZOLE 500mg 100 ML IVPB SCH ×4 (00:33→23:47)
[2016-11-23] MEDS: NovoLOG Insulin Flexpen SUBQ SCH ×5 (00:35→23:36)
[2016-11-23] MEDS: DiphenhydrAMINE 50mg/ml Inj IVP PRN ×4 (03:40→23:47)
[2016-11-23] MEDS: NS w/KCl 20mEq 1,000 ML IV SCH ×3 (04:15→20:26)
[2016-11-23 04:45] VITALS: BP 138/78
[2016-11-23 06:12] LABS: EOSINOPHILS % (AUTO) 7.6 % (0.0-3.0); LYMPHOCYTES % (AUTO) 31.3 % (20.0-45.0); MEAN CORPUSCULAR HEMOGLOBIN 31.7 PG (27.0-31.0); MEAN CORPUSCULAR HGB CONC 31.8 G/DL (32.0-36.0); MEAN CORPUSCULAR VOLUME 100 FL (80-99); MEAN PLATELET VOLUME 6.4 FL (6.5-10.1); MONOCYTES % (AUTO) 10.4 % (1.0-10.0); NEUTROPHILS % (AUTO) 49.7 % (45.0-75.0); PLATELET COUNT 220 K/UL (150-450); RED BLOOD COUNT 2.77 M/UL (4.20-5.40); RED CELL DISTRIBUTION WIDTH 19.1 % (11.6-14.8); WHITE BLOOD COUNT 5.8 K/UL (4.8-10.8)
[2016-11-23 06:43] LABS: CREATININE 1.3 mg/dL (0.5-0.9); GLOMERULAR FILTRATION RATE 51.1 mL/min (>60); POTASSIUM 4.5 mEQ/L (3.4-4.9)
[2016-11-23 08:20] VITALS: BP 129/82
[2016-11-23] MEDS: Pantoprazole Inj IVP SCH (08:20)
[2016-11-23] MEDS: Metoprolol 25mg tab ORAL SCH ×2 (08:21→20:10)
[2016-11-23] MEDS: PARoxetine 20mg tab ORAL SCH (08:21)
[2016-11-23] MEDS: Heparin 5000 units/ml inj SUBQ SCH ×2 (08:24→20:23)
[2016-11-23] MEDS: cefTRIAXone 1 GM in D5W 55 ML IVPB SCH (09:44)
--- NOTE | 2016-11-23 09:57 | Endoscopy Procedure Note ---
Endoscopy Procedure Note Indication for Procedure: anemia, abd pain Procedures Performed: EGD Operative Findings/Diagnosis: gastritis Specimen: yes Pt Tolerated Procedure Well: Yes Estimated Blood Loss: none Anesthesiologist: elise Anesthesia: MAC Implant(s) used?: No 50 yrs or older w/o bx or poly: Not Applicable 10yrs. F/U not recommended: Not Applicable CHRISTIANO MCRAE November 23, 2016 09:57
--- NOTE | 2016-11-23 10:02 | General Progress Note ---
Assessment/Plan Problem List: (1) Gastritis ICD Codes: K29.70 - Gastritis, unspecified, without bleeding SNOMED: 0021998 (2) HTN (hypertension) ICD Codes: I10 - Essential (primary) hypertension SNOMED: 43292289 (3) Diabetes mellitus, type II ICD Codes: E11.9 - Type 2 diabetes mellitus without complications SNOMED: 95575319 (4) Anemia ICD Codes: D64.9 - Anemia, unspecified SNOMED: 152074216 (5) Breast cancer ICD Codes: C50.919 - Malignant neoplasm of unspecified site of unspecified female breast SNOMED: 984963032 Assessment/Plan s/p EGd yesterday fu biopsy results ppi daily anemia work up possible colonoscopy on Friday Subjective ROS Limited/Unobtainable: Yes Allergies: Coded Allergies: NO KNOWN ALLERGIES (Verified Allergy, Unknown, 05/15/16) Subjective no event Objective Last 24 Hour Vital Signs Date Time Temp Pulse Resp B/P Pulse Ox O2 Delivery O2 Flow Rate FiO2 11/23/16 08:21 53 129/82 11/23/16 08:20 97.9 53 19 129/82 99 Room Air 11/23/16 07:07 98.1 11/23/16 04:45 98.1 53 20 138/78 100 Room Air 11/22/16 21:36 52 132/67 11/22/16 16:15 98.1 52 21 132/67 100 Room Air 11/22/16 14:26 100 11/22/16 14:25 49 20 98 11/22/16 14:11 97.4 47 20 147/76 100 Room Air 11/22/16 14:08 46 20 151/75 100 Room Air 11/22/16 14:06 67 24 100 11/22/16 14:05 44 20 132/62 100 Nasal Cannula 2.0 11/22/16 14:00 97.4 44 20 136/72 100 Nasal Cannula 2.0 11/22/16 12:15 97.6 50 19 140/87 99 Room Air Intake and Output 11/22/16 11/23/16 19:00 07:00 Intake Total 1340 ml 775 ml Balance 1340 ml 775 ml Intake Oral 385 ml IV Total 955 ml 775 ml # Voids 2 5 Laboratory Tests 11/23/16 05:30: White Blood Count 5.8, Red Blood Count 2.77L, Hemoglobin 8.8L, Hematocrit 27.6L , Mean Corpuscular Volume 100H, Mean Corpuscular Hemoglobin 31.7H, Mean Corpuscular Hemoglobin Concent 31.8L, Red Cell Distribution Width 19.1H, Platelet Count 220, Mean Platelet Volume 6.4L, Neutrophils (%) (Auto) 49.7, Lymphocytes (%) (Auto) 31.3, Monocytes (%) (Auto) 10.4H, Eosinophils (%) (Auto) 7.6H, Basophils (%) (Auto) 1.0, Sodium Level 141, Potassium Level 4.5, Chloride Level 104, Carbon Dioxide Level 24, Anion Gap 13, Blood Urea Nitrogen 16, Creatinine 1.3H, Estimat Glomerular Filtration Rate 51.1, Glucose Level 85, Calcium Level 9.0 Height (Feet): 5 Weight (Pounds): 135 General Appearance: alert EENT: normal ENT inspection Neck: supple Cardiovascular: normal rate Respiratory/Chest: lungs clear Abdomen: normal bowel sounds, non tender, soft Extremities: non-tender CHRISTIANO MCRAE November 23, 2016 10:02
[2016-11-23 12:00] VITALS: BP 145/100
--- NOTE | 2016-11-23 15:03 | Internal Med Progress Note ---
Subjective Date of Service: November 23, 2016 Physician Name Sammy Fall Attending Physician Nicholas Kovacs MD Current Medications Medications (Trade) Dose Ordered Sig/Argenis Route PRN Reason Start Time Stop Time Status Last Admin Dose Admin Ceftriaxone Sodium/Dextrose (Rocephin/D5W) 55 ml @ 110 mls/hr Q24H IVPB 11/21/16 09:00 11/28/16 08:59 11/23/16 09:44 Clonidine HCl (Catapres) 0.1 mg Q6H PRN ORAL SBP > 160 11/21/16 15:00 12/21/16 14:59 11/21/16 16:00 Dextrose STAT PRN IV Hypoglycemia 11/20/16 21:15 12/20/16 21:14 Diphenhydramine HCl (Benadryl) 25 mg Q6H PRN IVP Itching 11/22/16 16:45 12/22/16 16:44 11/23/16 09:45 Heparin Sodium (Porcine) (Heparin 5000 units/ml) 5,000 units EVERY 12 HOURS SUBQ 11/22/16 21:00 12/22/16 20:59 11/23/16 08:24 Hydromorphone HCl (Dilaudid) 0.5 mg Q4H PRN IVP Mild Pain (Pain Scale 1-3) 11/21/16 12:35 11/27/16 21:14 Hydromorphone HCl (Dilaudid) 1 mg Q3H PRN IVP PAIN 4-10 11/21/16 13:00 11/28/16 12:59 11/23/16 12:41 Insulin Aspart Q6HR SUBQ 11/21/16 00:00 12/21/16 00:00 11/23/16 12:05 Metoprolol Tartrate 25 mg 25 mg Q12HR ORAL 11/21/16 09:00 12/21/16 08:59 11/23/16 08:21 Metronidazole (Flagyl) 100 ml @ 100 mls/hr Q8HR@0000,0800,1600 IVPB 11/21/16 00:00 11/28/16 00:00 11/23/16 08:20 Ondansetron HCl (Zofran) 4 mg Q4H PRN IVP Nausea & Vomiting 11/20/16 21:15 12/20/16 21:14 11/23/16 12:41 Pantoprazole (Protonix) 40 mg DAILY IVP 11/22/16 09:00 12/22/16 08:59 11/23/16 08:20 Paroxetine HCl (Paxil) 20 mg DAILY ORAL 11/21/16 09:00 12/21/16 08:59 11/23/16 08:21 Sodium Chloride (NS w/KCl 20mEq) 1,000 ml @ 75 mls/hr [id number] IV 11/20/16 23:00 12/20/16 22:59 11/23/16 04:15 Allergies: Coded Allergies: NO KNOWN ALLERGIES (Verified Allergy, Unknown, 05/15/16) ROS Limited/Unobtainable: No Constitutional: Reports: no symptoms HEENT: Reports: no symptoms Cardiovascular: Reports: no symptoms Respiratory: Reports: no symptoms Gastrointestinal/Abdominal: Reports: abdominal pain, nausea Genitourinary: Reports: no symptoms Neurologic/Psychiatric: Reports: no symptoms Subjective 56 YO F admitted with epigastric pain. S/P endoscopy 11/22/16. Possible colonoscopy on 11/25/16 Objective Last Vital Signs Date Time Temp Pulse Resp B/P Pulse Ox O2 Delivery O2 Flow Rate FiO2 11/23/16 13:11 97.9 11/23/16 12:00 50 18 145/100 100 Room Air 11/22/16 14:05 2.0 Laboratory Tests Test 11/23/16 05:30 White Blood Count 5.8 K/UL (4.8-10.8) Red Blood Count 2.77 M/UL (4.20-5.40) L Hemoglobin 8.8 G/DL (12.0-16.0) L Hematocrit 27.6 % (37.0-47.0) L Mean Corpuscular Volume 100 FL (80-99) H Mean Corpuscular Hemoglobin 31.7 PG (27.0-31.0) H Mean Corpuscular Hemoglobin Concent 31.8 G/DL (32.0-36.0) L Red Cell Distribution Width 19.1 % (11.6-14.8) H Platelet Count 220 K/UL (150-450) Mean Platelet Volume 6.4 FL (6.5-10.1) L Neutrophils (%) (Auto) 49.7 % (45.0-75.0) Lymphocytes (%) (Auto) 31.3 % (20.0-45.0) Monocytes (%) (Auto) 10.4 % (1.0-10.0) H Eosinophils (%) (Auto) 7.6 % (0.0-3.0) H Basophils (%) (Auto) 1.0 % (0.0-2.0) Sodium Level 141 mEQ/L (135-145) Potassium Level 4.5 mEQ/L (3.4-4.9) Chloride Level 104 mEQ/L (98-107) Carbon Dioxide Level 24 mEQ/L (20-30) Anion Gap 13 (5-15) Blood Urea Nitrogen 16 mg/dL (7-23) Creatinine 1.3 mg/dL (0.5-0.9) H Estimat Glomerular Filtration Rate 51.1 mL/min (>60) Glucose Level 85 mg/dL (74-106) Calcium Level 9.0 mg/dL (8.6-10.2) Microbiology Date/Time Source Procedure Growth Status 11/21/16 00:00 Nasal Nares Left MRSA Culture - Final NO METHICILLIN RESISTANT STAPH AUREUS... Complete 11/21/16 13:00 Stool Clostridium difficile Toxin Assay - Final Complete 11/21/16 00:00 Rectum VRE Culture - Final Enterococcus Faecium - Vre Complete Intake and Output 11/22/16 11/23/16 19:00 07:00 Intake Total 1340 ml 850 ml Balance 1340 ml 850 ml Intake Oral 385 ml IV Total 955 ml 850 ml # Voids 2 5 Objective General: alert, cooperative, no distress, appears stated age Head: normocephalic, without obvious abnormality, atraumatic Eyes: conjunctivae/corneas clear. PERRL, EOM's intact Throat: lips, mucosa, and tongue normal. MMM Neck: supple, symmetrical, trachea midline, and no JVD Lungs: clear to auscultation bilaterally Heart: regular rate and rhythm, S1, S2 normal, no murmur, click, rub or gallop Abdomen: soft, tender to palp epigastric, non-distended, bowel sounds normal; no masses or organomegaly Extremities: extremities normal, atraumatic, no cyanosis or edema Pulses: 2+ and symmetric Skin: skin color, texture, turgor normal; no rashes or lesions Neurologic: grossly normal, no focal deficits Assessment/Plan Problem List: (1) CAD (coronary artery disease) (2) Diabetes mellitus, type II Assessment & Plan: cont novolog sliding scale. (3) HTN (hypertension) Assessment & Plan: cont clonidine and lopressor. (4) Hypercholesteremia (5) Renal failure (6) Nausea & vomiting (7) Epigastric pain Assessment & Plan: S/P endoscopy 11/22/16; possible colonoscopy on 11/25/16.- See GI note. See surgery note. (8) Breast cancer Status: not improved SAMMY FALL November 23, 2016 15:03
--- NOTE | 2016-11-23 15:19 | Pulmonology Progress Note ---
Assessment/Plan Assessment/Plan ASSESSMENT epigastric pain left breast Ca s/p partial mastectomy with axillary node biopsy anemia elevated alkaline phosphate HTN DM PLAN OF CARE MS floor pain management CT A/P No evidence of acute abdominopelvic disease empiric antibiotics epigastric pain with emesis and radiation to the back R/O ulcer, pancreatitis ( neg CT and labs) GI follows elevated CEA s/p EGD 11/22 with findings of gastritis stool OB not collected yet, if positive. GI will consider colonoscopy stool C dif negative possible colonoscoopy Friday IVF anemia workup with stable iron, continue PPI monitor HH and transfuse prn surgery follows s/p recent partial mastectomy, pathology negative in nodes and no residual tumor in breast BP management with BB and optimize as needed BS management with SS of insulin case discussed and evaluated by supervising physician Subjective Allergies: Coded Allergies: NO KNOWN ALLERGIES (Verified Allergy, Unknown, 05/15/16) Subjective still with intermittent abdominal pain , radiating to the back no n/v/ s/p EGD with findings of gastritis Objective Last 24 Hour Vital Signs Date Time Temp Pulse Resp B/P Pulse Ox O2 Delivery O2 Flow Rate FiO2 11/23/16 13:11 97.9 11/23/16 12:00 97.3 50 18 145/100 100 Room Air 11/23/16 08:21 53 129/82 11/23/16 08:20 97.9 53 19 129/82 99 Room Air 11/23/16 04:45 98.1 53 20 138/78 100 Room Air 11/22/16 21:36 52 132/67 11/22/16 16:15 98.1 52 21 132/67 100 Room Air Intake and Output 11/22/16 11/23/16 19:00 07:00 Intake Total 1340 ml 850 ml Balance 1340 ml 850 ml Intake Oral 385 ml IV Total 955 ml 850 ml # Voids 2 5 Objective General Appearance: no acute distress, other - A/A/O x 3 AA female in NAD HEENT: normocephalic, atraumatic, anicteric Respiratory/Chest: lungs clear, no respiratory distress, no accessory muscle use Breasts: other - left breast with partial mastectomy, healing Cardiovascular: normal peripheral pulses, normal rate, regular rhythm, no JVD Abdomen: normal bowel sounds - diffused tenderness, no rebound, no guarding , no organomegaly Extremities: no edema Neurologic/Psychiatric: no motor/sensory deficits, alert, oriented x 3, responsive, normal mood/affect Musculoskeletal: normal muscle bulk Microbiology Date/Time Source Procedure Growth Status 11/21/16 00:00 Nasal Nares Left MRSA Culture - Final NO METHICILLIN RESISTANT STAPH AUREUS... Complete 11/21/16 13:00 Stool Clostridium difficile Toxin Assay - Final Complete 11/21/16 00:00 Rectum VRE Culture - Final Enterococcus Faecium - Vre Complete Laboratory Tests 11/23/16 05:30: White Blood Count 5.8, Red Blood Count 2.77L, Hemoglobin 8.8L, Hematocrit 27.6L , Mean Corpuscular Volume 100H, Mean Corpuscular Hemoglobin 31.7H, Mean Corpuscular Hemoglobin Concent 31.8L, Red Cell Distribution Width 19.1H, Platelet Count 220, Mean Platelet Volume 6.4L, Neutrophils (%) (Auto) 49.7, Lymphocytes (%) (Auto) 31.3, Monocytes (%) (Auto) 10.4H, Eosinophils (%) (Auto) 7.6H, Basophils (%) (Auto) 1.0, Sodium Level 141, Potassium Level 4.5, Chloride Level 104, Carbon Dioxide Level 24, Anion Gap 13, Blood Urea Nitrogen 16, Creatinine 1.3H, Estimat Glomerular Filtration Rate 51.1, Glucose Level 85, Calcium Level 9.0 Current Medications Medications (Trade) Dose Ordered Sig/Argenis Route PRN Reason Start Time Stop Time Status Last Admin Dose Admin Ceftriaxone Sodium/Dextrose (Rocephin/D5W) 55 ml @ 110 mls/hr Q24H IVPB 11/21/16 09:00 11/28/16 08:59 11/23/16 09:44 Clonidine HCl (Catapres) 0.1 mg Q6H PRN ORAL SBP > 160 11/21/16 15:00 12/21/16 14:59 11/21/16 16:00 Dextrose STAT PRN IV Hypoglycemia 11/20/16 21:15 12/20/16 21:14 Diphenhydramine HCl (Benadryl) 25 mg Q6H PRN IVP Itching 11/22/16 16:45 12/22/16 16:44 11/23/16 09:45 Heparin Sodium (Porcine) (Heparin 5000 units/ml) 5,000 units EVERY 12 HOURS SUBQ 11/22/16 21:00 12/22/16 20:59 11/23/16 08:24 Hydromorphone HCl (Dilaudid) 0.5 mg Q4H PRN IVP Mild Pain (Pain Scale 1-3) 11/21/16 12:35 11/27/16 21:14 Hydromorphone HCl (Dilaudid) 1 mg Q3H PRN IVP PAIN 4-10 11/21/16 13:00 11/28/16 12:59 11/23/16 12:41 Insulin Aspart Q6HR SUBQ 11/21/16 00:00 12/21/16 00:00 11/23/16 12:05 Metoprolol Tartrate 25 mg 25 mg Q12HR ORAL 11/21/16 09:00 12/21/16 08:59 11/23/16 08:21 Metronidazole (Flagyl) 100 ml @ 100 mls/hr Q8HR@0000,0800,1600 IVPB 11/21/16 00:00 11/28/16 00:00 11/23/16 08:20 Ondansetron HCl (Zofran) 4 mg Q4H PRN IVP Nausea & Vomiting 11/20/16 21:15 12/20/16 21:14 11/23/16 12:41 Pantoprazole (Protonix) 40 mg DAILY IVP 11/22/16 09:00 12/22/16 08:59 11/23/16 08:20 Paroxetine HCl (Paxil) 20 mg DAILY ORAL 11/21/16 09:00 12/21/16 08:59 11/23/16 08:21 Sodium Chloride (NS w/KCl 20mEq) 1,000 ml @ 75 mls/hr Q26I04H IV 11/20/16 23:00 12/20/16 22:59 11/23/16 04:15 [facility]St[facility] CenterCatalina Kirkland NP November 23, 2016 15:19
[2016-11-23 16:00] VITALS: BP 164/95
--- NOTE | 2016-11-23 18:31 | Procedure Note ---
DATE OF PROCEDURE: 11/22/2016 SURGEON: Jared Treviño M.D. PROCEDURE: Upper endoscopy with biopsy. ANESTHESIOLOGIST: Maninder Garduno M.D. INSTRUMENT: Olympus adult flexible upper endoscope. INDICATION: 1. Anemia. 2. Abdominal pain. REASON FOR PROCEDURE: The procedure, risks, benefits, and possible consequences, including hemorrhage, aspiration, perforation and infection, and alternative treatments, were explained to the patient/legal guardian by Dr. Jared Treviño and the patient/legal guardian understood and accepted these risks. DESCRIPTION OF PROCEDURE: After informed consent was obtained and the patient was adequately sedated, Olympus upper endoscope was advanced from mouth into the second portion of duodenum and retroflexion was performed in the stomach. The patient had some focal severe gastritis in the distal body/antrum junction, which was biopsied. The random biopsy also from antrum was obtained to rule out H. pylori infection. The rest of the upper endoscopic examination was grossly within normal limits. There was no evidence of any obvious ulceration, mass, or any other pathology seen. The patient tolerated the procedure very well without any complication. SUMMARY OF FINDINGS: Focal gastritis status post biopsy. RECOMMENDATIONS: Follow up biopsies and treat accordingly. Jared Treviño M.D. DR: MYRIAM JOB#: [id number] CC:
[2016-11-23 20:00] VITALS: BP 120/79
[2016-11-24 04:00] VITALS: BP 119/77
[2016-11-24] MEDS: HYDROmorphone 1mg/ml Carpuject IVP PRN ×6 (04:57→21:14)
[2016-11-24] MEDS: NovoLOG Insulin Flexpen SUBQ SCH ×4 (05:49→23:44)
[2016-11-24 07:07] LABS: CALCIUM 9.2 mg/dL (8.6-10.2); CREATININE 1.3 mg/dL (0.5-0.9); GLOMERULAR FILTRATION RATE 51.1 mL/min (>60); POTASSIUM 4.7 mEQ/L (3.4-4.9)
[2016-11-24 07:21] LABS: BASOPHILS % (AUTO) 1.5 % (0.0-2.0); EOSINOPHILS % (AUTO) 8.7 % (0.0-3.0); LYMPHOCYTES % (AUTO) 30.2 % (20.0-45.0); MEAN CORPUSCULAR HEMOGLOBIN 31.2 PG (27.0-31.0); MEAN CORPUSCULAR HGB CONC 31.6 G/DL (32.0-36.0); MEAN CORPUSCULAR VOLUME 99 FL (80-99); MEAN PLATELET VOLUME 5.9 FL (6.5-10.1); MONOCYTES % (AUTO) 10.5 % (1.0-10.0); NEUTROPHILS % (AUTO) 49.2 % (45.0-75.0); PLATELET COUNT 216 K/UL (150-450); RED BLOOD COUNT 2.93 M/UL (4.20-5.40); RED CELL DISTRIBUTION WIDTH 18.8 % (11.6-14.8); WHITE BLOOD COUNT 5.1 K/UL (4.8-10.8)
--- NOTE | 2016-11-24 07:49 | General Progress Note ---
Assessment/Plan Problem List: (1) Gastritis ICD Codes: K29.70 - Gastritis, unspecified, without bleeding SNOMED: 7574259 (2) HTN (hypertension) ICD Codes: I10 - Essential (primary) hypertension SNOMED: 05642824 (3) Diabetes mellitus, type II ICD Codes: E11.9 - Type 2 diabetes mellitus without complications SNOMED: 12209265 (4) Anemia ICD Codes: D64.9 - Anemia, unspecified SNOMED: 822013754 (5) Breast cancer ICD Codes: C50.919 - Malignant neoplasm of unspecified site of unspecified female breast SNOMED: 867138842 Assessment/Plan fu biopsy results ppi daily anemia work up plan colonoscopy on Friday Subjective ROS Limited/Unobtainable: Yes Allergies: Coded Allergies: NO KNOWN ALLERGIES (Verified Allergy, Unknown, 05/15/16) Subjective no event still c/o abd pain Objective Last 24 Hour Vital Signs Date Time Temp Pulse Resp B/P Pulse Ox O2 Delivery O2 Flow Rate FiO2 11/24/16 04:00 98.4 60 20 119/77 96 Room Air 11/24/16 00:30 98.1 11/23/16 20:10 51 162/95 11/23/16 20:00 98.1 51 20 120/79 98 Room Air 11/23/16 16:11 162/95 11/23/16 16:00 97.7 51 18 164/95 100 Room Air 11/23/16 12:00 97.3 50 18 145/100 100 Room Air 11/23/16 08:21 53 129/82 11/23/16 08:20 97.9 53 19 129/82 99 Room Air Intake and Output 11/23/16 11/24/16 19:00 07:00 Intake Total 1060 ml Balance 1060 ml IV Total 1060 ml # Voids 5 # Bowel Movements 1 Laboratory Tests 11/24/16 05:50: White Blood Count 5.1, Red Blood Count 2.93L, Hemoglobin 9.1L, Hematocrit 28.9L , Mean Corpuscular Volume 99, Mean Corpuscular Hemoglobin 31.2H, Mean Corpuscular Hemoglobin Concent 31.6L, Red Cell Distribution Width 18.8H, Platelet Count 216, Mean Platelet Volume 5.9L, Neutrophils (%) (Auto) 49.2, Lymphocytes (%) (Auto) 30.2, Monocytes (%) (Auto) 10.5H, Eosinophils (%) (Auto) 8.7H, Basophils (%) (Auto) 1.5, Sodium Level 142, Potassium Level 4.7, Chloride Level 105, Carbon Dioxide Level 22, Anion Gap 15, Blood Urea Nitrogen 13, Creatinine 1.3H, Estimat Glomerular Filtration Rate 51.1, Glucose Level 93, Calcium Level 9.2 Height (Feet): 5 Weight (Pounds): 135 General Appearance: alert EENT: normal ENT inspection Neck: supple Cardiovascular: normal rate Respiratory/Chest: decreased breath sounds Abdomen: soft, tender Extremities: non-tender CHRISTIANO MCRAE November 24, 2016 07:49
[2016-11-24] MEDS: DiphenhydrAMINE 50mg/ml Inj IVP PRN ×3 (08:20→21:44)
[2016-11-24] MEDS: metroNIDAZOLE 500mg 100 ML IVPB SCH ×3 (08:20→23:48)
[2016-11-24 08:28] VITALS: BP 160/103
[2016-11-24] MEDS: Metoprolol 25mg tab ORAL SCH ×2 (09:26→21:00)
[2016-11-24] MEDS: Pantoprazole Inj IVP SCH (09:26)
[2016-11-24] MEDS: PARoxetine 20mg tab ORAL SCH (09:26)
[2016-11-24] MEDS: Heparin 5000 units/ml inj SUBQ SCH ×2 (09:27→21:00)
[2016-11-24] MEDS: cefTRIAXone 1 GM in D5W 55 ML IVPB SCH (09:28)
--- NOTE | 2016-11-24 10:46 | Pulmonology Progress Note ---
Assessment/Plan Assessment/Plan ASSESSMENT epigastric pain left breast Ca s/p partial mastectomy with axillary node biopsy anemia elevated alkaline phosphate HTN DM PLAN OF CARE MS floor pain management CT A/P No evidence of acute abdominopelvic disease empiric antibiotics epigastric pain with emesis and radiation to the back R/O ulcer, pancreatitis ( neg CT and labs) GI follows elevated CEA s/p EGD 11/22 with findings of gastritis stool C dif negative colonoscopy on Friday IVF anemia workup with stable iron, continue PPI monitor HH and transfuse prn surgery follows s/p recent partial mastectomy, pathology negative in nodes and no residual tumor in breast BP management with BB and optimize as needed BS management with SS of insulin case discussed and evaluated by supervising physician Subjective Allergies: Coded Allergies: NO KNOWN ALLERGIES (Verified Allergy, Unknown, 05/15/16) Subjective still with intermittent abdominal pain , radiating to the back s/p EGD with findings of gastritis denies n/v/ no SOB, no chest pain Objective Last 24 Hour Vital Signs Date Time Temp Pulse Resp B/P Pulse Ox O2 Delivery O2 Flow Rate FiO2 11/24/16 09:26 53 160/103 11/24/16 08:49 98.2 11/24/16 08:28 98.2 53 18 160/103 97 Room Air 11/24/16 04:00 98.4 60 20 119/77 96 Room Air 11/23/16 20:10 51 162/95 11/23/16 20:00 98.1 51 20 120/79 98 Room Air 11/23/16 16:11 162/95 11/23/16 16:00 97.7 51 18 164/95 100 Room Air 11/23/16 12:00 97.3 50 18 145/100 100 Room Air Intake and Output 11/23/16 11/24/16 19:00 07:00 Intake Total 1060 ml Balance 1060 ml IV Total 1060 ml # Voids 5 # Bowel Movements 1 Objective General Appearance: no acute distress, other - A/A/O x 3 AA female in NAD HEENT: normocephalic, atraumatic, anicteric Respiratory/Chest: lungs clear, no respiratory distress, no accessory muscle use Breasts: other - left breast with partial mastectomy, healing Cardiovascular: normal peripheral pulses, normal rate, regular rhythm, no JVD Abdomen: normal bowel sounds - diffused tenderness, no rebound, no guarding , no organomegaly Extremities: no edema Neurologic/Psychiatric: no motor/sensory deficits, alert, oriented x 3, responsive, normal mood/affect Musculoskeletal: normal muscle bulk Microbiology Date/Time Source Procedure Growth Status 11/21/16 13:00 Stool Clostridium difficile Toxin Assay - Final Complete Laboratory Tests 11/24/16 05:50: White Blood Count 5.1, Red Blood Count 2.93L, Hemoglobin 9.1L, Hematocrit 28.9L , Mean Corpuscular Volume 99, Mean Corpuscular Hemoglobin 31.2H, Mean Corpuscular Hemoglobin Concent 31.6L, Red Cell Distribution Width 18.8H, Platelet Count 216, Mean Platelet Volume 5.9L, Neutrophils (%) (Auto) 49.2, Lymphocytes (%) (Auto) 30.2, Monocytes (%) (Auto) 10.5H, Eosinophils (%) (Auto) 8.7H, Basophils (%) (Auto) 1.5, Sodium Level 142, Potassium Level 4.7, Chloride Level 105, Carbon Dioxide Level 22, Anion Gap 15, Blood Urea Nitrogen 13, Creatinine 1.3H, Estimat Glomerular Filtration Rate 51.1, Glucose Level 93, Calcium Level 9.2 Current Medications Medications (Trade) Dose Ordered Sig/Argenis Route PRN Reason Start Time Stop Time Status Last Admin Dose Admin Bisacodyl (Dulcolax) 20 mg ONCE ONCE ORAL 11/24/16 12:00 11/24/16 12:01 Ceftriaxone Sodium/Dextrose (Rocephin/D5W) 55 ml @ 110 mls/hr Q24H IVPB 11/21/16 09:00 11/28/16 08:59 11/24/16 09:28 Clonidine HCl (Catapres) 0.1 mg Q6H PRN ORAL SBP > 160 11/21/16 15:00 12/21/16 14:59 11/23/16 16:11 Dextrose STAT PRN IV Hypoglycemia 11/20/16 21:15 12/20/16 21:14 Diphenhydramine HCl (Benadryl) 25 mg Q6H PRN IVP Itching 11/22/16 16:45 12/22/16 16:44 11/24/16 08:20 Heparin Sodium (Porcine) (Heparin 5000 units/ml) 5,000 units EVERY 12 HOURS SUBQ 11/22/16 21:00 12/22/16 20:59 11/24/16 09:27 Hydromorphone HCl (Dilaudid) 0.5 mg Q4H PRN IVP Mild Pain (Pain Scale 1-3) 11/21/16 12:35 11/27/16 21:14 Hydromorphone HCl (Dilaudid) 1 mg Q3H PRN IVP PAIN 4-10 11/21/16 13:00 11/28/16 12:59 11/24/16 08:19 Insulin Aspart Q6HR SUBQ 11/21/16 00:00 12/21/16 00:00 11/23/16 18:06 Metoprolol Tartrate 25 mg 25 mg Q12HR ORAL 11/21/16 09:00 12/21/16 08:59 11/24/16 09:26 Metronidazole (Flagyl) 100 ml @ 100 mls/hr Q8HR@0000,0800,1600 IVPB 11/21/16 00:00 11/28/16 00:00 11/24/16 08:20 Ondansetron HCl (Zofran) 4 mg Q4H PRN IVP Nausea & Vomiting 11/20/16 21:15 12/20/16 21:14 11/23/16 12:41 Pantoprazole (Protonix) 40 mg DAILY IVP 11/22/16 09:00 12/22/16 08:59 11/24/16 09:26 Paroxetine HCl (Paxil) 20 mg DAILY ORAL 11/21/16 09:00 12/21/16 08:59 11/24/16 09:26 Polyethylene Glycol/ Electrolytes (Nulytely) 4,000 ml ONCE ONCE ORAL 11/24/16 14:00 11/24/16 14:01 Sodium Chloride (NS w/KCl 20mEq) 1,000 ml @ 75 mls/hr [id number] IV 11/20/16 23:00 12/20/16 22:59 11/23/16 20:26 [facility]Al[facility] HospitalCatalina Kirkland NP November 24, 2016 10:46
[2016-11-24] MEDS ORDERED: Bisacodyl EC 5mg tab ORAL ONE (12:00)
[2016-11-24 12:07] VITALS: BP 141/98
[2016-11-24] MEDS ORDERED: Nulytely 4L ORAL ONE (14:00)
--- NOTE | 2016-11-24 15:34 | Internal Med Progress Note ---
Subjective Date of Service: November 24, 2016 Physician Name Sammy Chin Attending Physician Nicholas Kovacs MD Current Medications Medications (Trade) Dose Ordered Sig/Argenis Route PRN Reason Start Time Stop Time Status Last Admin Dose Admin Ceftriaxone Sodium/Dextrose (Rocephin/D5W) 55 ml @ 110 mls/hr Q24H IVPB 11/21/16 09:00 11/28/16 08:59 11/24/16 09:28 Clonidine HCl (Catapres) 0.1 mg Q6H PRN ORAL SBP > 160 11/21/16 15:00 12/21/16 14:59 11/23/16 16:11 Dextrose STAT PRN IV Hypoglycemia 11/20/16 21:15 12/20/16 21:14 Diphenhydramine HCl (Benadryl) 25 mg Q6H PRN IVP Itching 11/22/16 16:45 12/22/16 16:44 11/24/16 14:33 Heparin Sodium (Porcine) (Heparin 5000 units/ml) 5,000 units EVERY 12 HOURS SUBQ 11/22/16 21:00 12/22/16 20:59 11/24/16 09:27 Hydromorphone HCl (Dilaudid) 0.5 mg Q4H PRN IVP Mild Pain (Pain Scale 1-3) 11/21/16 12:35 11/27/16 21:14 Hydromorphone HCl (Dilaudid) 1 mg Q3H PRN IVP PAIN 4-10 11/21/16 13:00 11/28/16 12:59 11/24/16 14:32 Insulin Aspart Q6HR SUBQ 11/21/16 00:00 12/21/16 00:00 11/24/16 12:15 Metoprolol Tartrate 25 mg 25 mg Q12HR ORAL 11/21/16 09:00 12/21/16 08:59 11/24/16 09:26 Metronidazole (Flagyl) 100 ml @ 100 mls/hr Q8HR@0000,0800,1600 IVPB 11/21/16 00:00 11/28/16 00:00 11/24/16 08:20 Ondansetron HCl (Zofran) 4 mg Q4H PRN IVP Nausea & Vomiting 11/20/16 21:15 12/20/16 21:14 11/23/16 12:41 Pantoprazole (Protonix) 40 mg DAILY IVP 11/22/16 09:00 12/22/16 08:59 11/24/16 09:26 Paroxetine HCl (Paxil) 20 mg DAILY ORAL 11/21/16 09:00 12/21/16 08:59 11/24/16 09:26 Sodium Chloride (NS w/KCl 20mEq) 1,000 ml @ 75 mls/hr [id number] IV 11/20/16 23:00 12/20/16 22:59 11/23/16 20:26 Allergies: Coded Allergies: NO KNOWN ALLERGIES (Verified Allergy, Unknown, 05/15/16) ROS Limited/Unobtainable: No Constitutional: Reports: no symptoms HEENT: Reports: no symptoms Cardiovascular: Reports: no symptoms Respiratory: Reports: no symptoms Gastrointestinal/Abdominal: Reports: abdominal pain Genitourinary: Reports: no symptoms Neurologic/Psychiatric: Reports: no symptoms Subjective 56 YO F admitted with epigastric pain. S/P endoscopy 11/22/16. Await colonoscopy on 11/25/16 Objective Last Vital Signs Date Time Temp Pulse Resp B/P Pulse Ox O2 Delivery O2 Flow Rate FiO2 11/24/16 12:07 97.9 51 18 141/98 100 Room Air 11/22/16 14:05 2.0 Laboratory Tests Test 11/24/16 05:50 White Blood Count 5.1 K/UL (4.8-10.8) Red Blood Count 2.93 M/UL (4.20-5.40) L Hemoglobin 9.1 G/DL (12.0-16.0) L Hematocrit 28.9 % (37.0-47.0) L Mean Corpuscular Volume 99 FL (80-99) Mean Corpuscular Hemoglobin 31.2 PG (27.0-31.0) H Mean Corpuscular Hemoglobin Concent 31.6 G/DL (32.0-36.0) L Red Cell Distribution Width 18.8 % (11.6-14.8) H Platelet Count 216 K/UL (150-450) Mean Platelet Volume 5.9 FL (6.5-10.1) L Neutrophils (%) (Auto) 49.2 % (45.0-75.0) Lymphocytes (%) (Auto) 30.2 % (20.0-45.0) Monocytes (%) (Auto) 10.5 % (1.0-10.0) H Eosinophils (%) (Auto) 8.7 % (0.0-3.0) H Basophils (%) (Auto) 1.5 % (0.0-2.0) Sodium Level 142 mEQ/L (135-145) Potassium Level 4.7 mEQ/L (3.4-4.9) Chloride Level 105 mEQ/L (98-107) Carbon Dioxide Level 22 mEQ/L (20-30) Anion Gap 15 (5-15) Blood Urea Nitrogen 13 mg/dL (7-23) Creatinine 1.3 mg/dL (0.5-0.9) H Estimat Glomerular Filtration Rate 51.1 mL/min (>60) Glucose Level 93 mg/dL (74-106) Calcium Level 9.2 mg/dL (8.6-10.2) Intake and Output 11/23/16 11/24/16 19:00 07:00 Intake Total 1060 ml 75 ml Balance 1060 ml 75 ml IV Total 1060 ml 75 ml # Voids 5 # Bowel Movements 1 Objective General: alert, cooperative, no distress, appears stated age Head: normocephalic, without obvious abnormality, atraumatic Eyes: conjunctivae/corneas clear. PERRL, EOM's intact Throat: lips, mucosa, and tongue normal. MMM Neck: supple, symmetrical, trachea midline, and no JVD Lungs: clear to auscultation bilaterally Heart: regular rate and rhythm, S1, S2 normal, no murmur, click, rub or gallop Abdomen: soft, tender to palp epigastric, non-distended, bowel sounds normal; no masses or organomegaly Extremities: extremities normal, atraumatic, no cyanosis or edema Pulses: 2+ and symmetric Skin: skin color, texture, turgor normal; no rashes or lesions Neurologic: grossly normal, no focal deficits Assessment/Plan Problem List: (1) CAD (coronary artery disease) (2) Diabetes mellitus, type II Assessment & Plan: cont novolog sliding scale. (3) HTN (hypertension) Assessment & Plan: cont clonidine and lopressor. (4) Hypercholesteremia (5) Renal failure (6) Nausea & vomiting (7) Epigastric pain Assessment & Plan: S/P endoscopy 11/22/16; colonoscopy scheduled on Mon .-See GI note. See surgery note. (8) Breast cancer Status: SAMMY Sneed November 24, 2016 15:34
[2016-11-24 16:45] VITALS: BP 155/79
[2016-11-24 20:00] VITALS: BP 158/103
[2016-11-24] MEDS: NS w/KCl 20mEq 1,000 ML IV SCH (20:20)
[2016-11-25] VITALS (8 sets, daily range): BP systolic 117–147; BP diastolic 61–89
[2016-11-25] MEDS: HYDROmorphone 1mg/ml Carpuject IVP PRN ×7 (00:38→23:54)
[2016-11-25] MEDS: DiphenhydrAMINE 50mg/ml Inj IVP PRN ×3 (04:50→20:33)
[2016-11-25] MEDS: NS w/KCl 20mEq 1,000 ML IV SCH ×2 (04:50→23:00)
[2016-11-25] MEDS: NovoLOG Insulin Flexpen SUBQ SCH ×3 (05:55→17:21)
[2016-11-25 06:56] LABS: BASOPHILS % (AUTO) 1.2 % (0.0-2.0); EOSINOPHILS % (AUTO) 9.2 % (0.0-3.0); LYMPHOCYTES % (AUTO) 31.4 % (20.0-45.0); MEAN CORPUSCULAR HEMOGLOBIN 31.2 PG (27.0-31.0); MEAN CORPUSCULAR HGB CONC 31.5 G/DL (32.0-36.0); MEAN CORPUSCULAR VOLUME 99 FL (80-99); MEAN PLATELET VOLUME 6.1 FL (6.5-10.1); MONOCYTES % (AUTO) 11.4 % (1.0-10.0); NEUTROPHILS % (AUTO) 46.8 % (45.0-75.0); PLATELET COUNT 211 K/UL (150-450); RED BLOOD COUNT 2.88 M/UL (4.20-5.40); RED CELL DISTRIBUTION WIDTH 19.3 % (11.6-14.8); WHITE BLOOD COUNT 4.8 K/UL (4.8-10.8)
[2016-11-25 07:34] LABS: CALCIUM 9.2 mg/dL (8.6-10.2); CREATININE 1.4 mg/dL (0.5-0.9); GLOMERULAR FILTRATION RATE 46.9 mL/min (>60); POTASSIUM 4.5 mEQ/L (3.4-4.9)
[2016-11-25] MEDS: metroNIDAZOLE 500mg 100 ML IVPB SCH ×2 (08:36→15:48)
[2016-11-25] MEDS: PARoxetine 20mg tab ORAL SCH (08:36)
[2016-11-25] MEDS: Metoprolol 25mg tab ORAL SCH ×2 (08:36→20:32)
[2016-11-25] MEDS: Pantoprazole Inj IVP SCH (08:36)
[2016-11-25] MEDS: Heparin 5000 units/ml inj SUBQ SCH ×2 (08:37→20:42)
--- NOTE | 2016-11-25 08:37 | General Progress Note ---
Progress Note Progress Note Improving with less pain. To have colonoscopy today. sutures removed from left breast surgery and steristrips applied. Nicely healed. Axilla well healed. Await colonoscopy findings. Will see patient in Breast Clinic in 2 weeks. CATHLEEN WAGNER November 25, 2016 08:37
[2016-11-25] MEDS ORDERED: Propofol 10mg/ml 20ml IV ONE (09:00)
[2016-11-25] MEDS ORDERED: NS 550ML IV ONE (09:05)
--- NOTE | 2016-11-25 09:14 | Pre-Procedure Note/Attestation ---
Pre-Procedure Note/Attestation Complete Prior to Procedure Planned Procedure: not applicable Procedure Narrative: colonoscopy Indications for Procedure Pre-Operative Diagnosis: anemia, abd pain Attestation I attest that I discussed the nature of the procedure; its benefits; risks and complications; and alternatives (and the risks and benefits of such alternatives ), prior to the procedure, with the patient (or the patient's legal corporate representative). I attest that, if there was a reasonable possibility of needing a blood transfusion, the patient (or the patient's legal corporate representative) was given the [facility] standardized written summary, pursuant to the [place] Blood Safety Act ([place] Health and Safety Code # 1645, as amended). I attest that I re-evaluated the patient just prior to the surgery and that there has been no change in the patient's H&P, except as documented below: CHRISTIANO MCRAE November 25, 2016 09:14
[2016-11-25] MEDS ORDERED: Midazolam 2mg/2ml Inj IVP PRN (09:30)
[2016-11-25] MEDS ORDERED: Hydromorphone 0.5mg/0.5ml inj IVP PRN (09:30)
--- NOTE | 2016-11-25 09:30 | Endoscopy Procedure Note ---
Endoscopy Procedure Note Indication for Procedure: anemia Procedures Performed: colonoscopy Operative Findings/Diagnosis: hemorrhoids Specimen: none Pt Tolerated Procedure Well: Yes Estimated Blood Loss: none Anesthesiologist: hansa Anesthesia: MAC Implant(s) used?: No 50 yrs or older w/o bx or poly: Not Applicable 10yrs. F/U not recommended: Not Applicable CHRISTIANO MCRAE November 25, 2016 09:30
--- NOTE | 2016-11-25 09:42 | Anethesia Preoperative Eval ---
Anesthesia Pre-op PMH/ROS General Date of Evaluation: November 25, 2016 Time of Evaluation: 09:11 Anesthesiologist: Silas ASA Score: ASA 3 Mallampati Score Class I : Soft palate, uvula, fauces, pillars visible Class II: Soft palate, uvula, fauces visible Class III: Soft palate, base of uvula visible Class IV: Only hard plate visible Mallampati Classification: Class II Surgeon: Kamila Diagnosis: Anemia, abdominal pain Surgical Procedure: Colonoscopy Family History: no anesthesia problems Allergies: Coded Allergies: NO KNOWN ALLERGIES (Verified Allergy, Unknown, 05/15/16) Medications: see eMAR Past Medical History Cardiovascular: Reports: HTN, Denies: CAD, CO, arrhythmia, other, valve dz Pulmonary: Denies: COPD, ALEXANDER, asthma, other Gastrointestinal/Genitourinary: Denies: CRI, ESRD, GERD, other Neurologic/Psychiatric: Denies: CVA, TIA, dementia, depression/anxiety, other Endocrine: Reports: DM, Denies: hypothyroidism, other, steroids HEENT: Denies: [place] (L), [place] (R), cataract (L), cataract (R), glaucoma, other Hematology/Immune: Reports: anemia, Denies: DVT, bleeding disorder, other Musculoskeletal/Integumentary: Denies: DDD, DJD, OA, RA, edema, other PMH Narrative: Breast CA, HTN, DM PSxH Narrative: Lumpectomy, cholecystectomy, MARIO, Back surgery Anesthesia Pre-op Phys. Exam Physician Exam Last Vital Signs Date Time Temp Pulse Resp B/P Pulse Ox O2 Delivery O2 Flow Rate FiO2 11/25/16 08:36 53 147/88 11/25/16 07:52 97.7 18 95 Room Air 11/22/16 14:05 2.0 Constitutional: NAD Neurologic: CN 2-12 intact Cardiovascular: RRR, no M/R/G Respiratory: CTA Gastrointestinal: S/NT/ND Airway Exam Mallampati Score: Class II MO: full ROM: full Dentures: lower, upper Anesthesia Pre-op A/P Labs Hematology Test 11/25/16 06:05 White Blood Count 4.8 K/UL (4.8-10.8) Red Blood Count 2.88 M/UL (4.20-5.40) L Hemoglobin 9.0 G/DL (12.0-16.0) L Hematocrit 28.5 % (37.0-47.0) L Mean Corpuscular Volume 99 FL (80-99) Mean Corpuscular Hemoglobin 31.2 PG (27.0-31.0) H Mean Corpuscular Hemoglobin Concent 31.5 G/DL (32.0-36.0) L Red Cell Distribution Width 19.3 % (11.6-14.8) H Platelet Count 211 K/UL (150-450) Mean Platelet Volume 6.1 FL (6.5-10.1) L Neutrophils (%) (Auto) 46.8 % (45.0-75.0) Lymphocytes (%) (Auto) 31.4 % (20.0-45.0) Monocytes (%) (Auto) 11.4 % (1.0-10.0) H Eosinophils (%) (Auto) 9.2 % (0.0-3.0) H Basophils (%) (Auto) 1.2 % (0.0-2.0) Chemistry Test 11/25/16 06:05 Sodium Level 140 mEQ/L (135-145) Potassium Level 4.5 mEQ/L (3.4-4.9) Chloride Level 105 mEQ/L (98-107) Carbon Dioxide Level 24 mEQ/L (20-30) Anion Gap 11 (5-15) Blood Urea Nitrogen 11 mg/dL (7-23) Creatinine 1.4 mg/dL (0.5-0.9) H Estimat Glomerular Filtration Rate 46.9 mL/min (>60) Glucose Level 104 mg/dL (74-106) Calcium Level 9.2 mg/dL (8.6-10.2) Risk Assessment & Plan Assessment: Anemia Plan: Colonoscopy Status Change Before Surgery: No Pre-Antibiotics Drug: None CLAIRE HDZ M.D. November 25, 2016 09:42
--- NOTE | 2016-11-25 09:43 | Immediate Post-Op Evaluation ---
Immediate Post-Op Evalulation Immediate Post-Op Evalulation Procedure: Colonoscopy Date of Evaluation: November 25, 2016 Time of Evaluation: 09:45 IV Fluids: 250 Blood Pressure Systolic: 118 Blood Pressure Diastolic: 61 Pulse Rate: 44 Respiratory Rate: 11 O2 Sat by Pulse Oximetry: 100 Temperature (Fahrenheit): 97.9 Pain Score (1-10): 0 Nausea: No Vomiting: No Complications No complication Patient Status: reacts, patent, none Hydration Status: adequate Drug: None CLAIRE HDZ M.D. November 25, 2016 09:43
[2016-11-25] MEDS: cefTRIAXone 1 GM in D5W 55 ML IVPB SCH (10:33)
--- NOTE | 2016-11-25 11:29 | Internal Med Progress Note ---
Subjective Date of Service: November 25, 2016 Physician Name Sammy Fall Attending Physician Nicholas Kovacs MD Current Medications Medications (Trade) Dose Ordered Sig/Argenis Route PRN Reason Start Time Stop Time Status Last Admin Dose Admin Ceftriaxone Sodium/Dextrose (Rocephin/D5W) 55 ml @ 110 mls/hr Q24H IVPB 11/21/16 09:00 11/28/16 08:59 11/25/16 10:33 Clonidine HCl (Catapres) 0.1 mg Q6H PRN ORAL SBP > 160 11/21/16 15:00 12/21/16 14:59 11/24/16 19:49 Dextrose STAT PRN IV Hypoglycemia 11/20/16 21:15 12/20/16 21:14 Diphenhydramine HCl (Benadryl) 25 mg Q6H PRN IVP Itching 11/22/16 16:45 12/22/16 16:44 11/25/16 04:50 Heparin Sodium (Porcine) 5000 units 5,000 units EVERY 12 HOURS SUBQ 11/22/16 21:00 12/22/16 20:59 11/24/16 09:27 Hydromorphone HCl (Dilaudid) 0.5 mg Q15M PRN IVP Severe Pain (Pain Scale 7-10) 11/25/16 09:30 11/25/16 14:00 Hydromorphone HCl (Dilaudid) 0.5 mg Q4H PRN IVP Mild Pain (Pain Scale 1-3) 11/21/16 12:35 11/27/16 21:14 Hydromorphone HCl (Dilaudid) 1 mg Q3H PRN IVP PAIN 4-10 11/21/16 13:00 11/28/16 12:59 11/25/16 08:48 Insulin Aspart Q6HR SUBQ 11/21/16 00:00 12/21/16 00:00 11/24/16 12:15 Metoprolol Tartrate 25 mg 25 mg Q12HR ORAL 11/21/16 09:00 12/21/16 08:59 11/25/16 08:36 Metronidazole (Flagyl) 100 ml @ 100 mls/hr Q8HR@0000,0800,1600 IVPB 11/21/16 00:00 11/28/16 00:00 11/25/16 08:36 Midazolam HCl (Versed 2mg/2ml vial) 1 mg Q15M PRN IVP For Anxiety 11/25/16 09:30 11/25/16 14:00 Ondansetron HCl (Zofran) 4 mg Q1H PRN IVP Nausea & Vomiting 11/25/16 09:30 11/25/16 14:00 Ondansetron HCl (Zofran) 4 mg Q4H PRN IVP Nausea & Vomiting 11/20/16 21:15 12/20/16 21:14 11/23/16 12:41 Pantoprazole (Protonix) 40 mg DAILY IVP 11/22/16 09:00 12/22/16 08:59 11/25/16 08:36 Paroxetine HCl (Paxil) 20 mg DAILY ORAL 11/21/16 09:00 12/21/16 08:59 11/25/16 08:36 Sodium Chloride (NS w/KCl 20mEq) 1,000 ml @ 75 mls/hr [id number] IV 11/20/16 23:00 12/20/16 22:59 11/25/16 04:50 Sodium Chloride (Sodium Chloride 1000ml bag) 1,000 ml @ 10 mls/hr Q24H IVLG 11/25/16 09:27 11/25/16 14:00 11/25/16 10:33 Allergies: Coded Allergies: NO KNOWN ALLERGIES (Verified Allergy, Unknown, 05/15/16) ROS Limited/Unobtainable: No Constitutional: Reports: no symptoms HEENT: Reports: no symptoms Cardiovascular: Reports: no symptoms Respiratory: Reports: no symptoms Gastrointestinal/Abdominal: Reports: abdominal pain Genitourinary: Reports: no symptoms Neurologic/Psychiatric: Reports: no symptoms Subjective 56 YO F admitted with epigastric pain. S/P endoscopy 11/22/16. S/P colonoscopy on 11/25/16 Objective Last Vital Signs Date Time Temp Pulse Resp B/P Pulse Ox O2 Delivery O2 Flow Rate FiO2 11/25/16 09:50 46 14 130/69 98 Room Air 11/25/16 09:40 6.0 11/25/16 09:35 97.9 Laboratory Tests Test 11/25/16 06:05 White Blood Count 4.8 K/UL (4.8-10.8) Red Blood Count 2.88 M/UL (4.20-5.40) L Hemoglobin 9.0 G/DL (12.0-16.0) L Hematocrit 28.5 % (37.0-47.0) L Mean Corpuscular Volume 99 FL (80-99) Mean Corpuscular Hemoglobin 31.2 PG (27.0-31.0) H Mean Corpuscular Hemoglobin Concent 31.5 G/DL (32.0-36.0) L Red Cell Distribution Width 19.3 % (11.6-14.8) H Platelet Count 211 K/UL (150-450) Mean Platelet Volume 6.1 FL (6.5-10.1) L Neutrophils (%) (Auto) 46.8 % (45.0-75.0) Lymphocytes (%) (Auto) 31.4 % (20.0-45.0) Monocytes (%) (Auto) 11.4 % (1.0-10.0) H Eosinophils (%) (Auto) 9.2 % (0.0-3.0) H Basophils (%) (Auto) 1.2 % (0.0-2.0) Sodium Level 140 mEQ/L (135-145) Potassium Level 4.5 mEQ/L (3.4-4.9) Chloride Level 105 mEQ/L (98-107) Carbon Dioxide Level 24 mEQ/L (20-30) Anion Gap 11 (5-15) Blood Urea Nitrogen 11 mg/dL (7-23) Creatinine 1.4 mg/dL (0.5-0.9) H Estimat Glomerular Filtration Rate 46.9 mL/min (>60) Glucose Level 104 mg/dL (74-106) Calcium Level 9.2 mg/dL (8.6-10.2) Intake and Output 11/24/16 11/25/16 19:00 07:00 Intake Total 1515 ml 825 ml Balance 1515 ml 825 ml Intake Oral 360 ml IV Total 1155 ml 825 ml # Voids 1 3 # Bowel Movements 11 Objective General: alert, cooperative, no distress, appears stated age Head: normocephalic, without obvious abnormality, atraumatic Eyes: conjunctivae/corneas clear. PERRL, EOM's intact Throat: lips, mucosa, and tongue normal. MMM Neck: supple, symmetrical, trachea midline, and no JVD Lungs: clear to auscultation bilaterally Heart: regular rate and rhythm, S1, S2 normal, no murmur, click, rub or gallop Abdomen: soft, tender to palp epigastric, non-distended, bowel sounds normal; no masses or organomegaly Extremities: extremities normal, atraumatic, no cyanosis or edema Pulses: 2+ and symmetric Skin: skin color, texture, turgor normal; no rashes or lesions Neurologic: grossly normal, no focal deficits Assessment/Plan Problem List: (1) CAD (coronary artery disease) (2) Diabetes mellitus, type II Assessment & Plan: cont novolog sliding scale. (3) HTN (hypertension) Assessment & Plan: cont clonidine and lopressor. (4) Hypercholesteremia (5) Renal failure (6) Nausea & vomiting (7) Epigastric pain Assessment & Plan: S/P endoscopy 11/22/16; S/P colonoscopy on 11/25/16.-See GI note. See surgery note. (8) Breast cancer Status: progressing Assessment/Plan Discharge planning [facility] 11/26/16 with home health SAMMY FALL November 25, 2016 11:29
--- NOTE | 2016-11-25 18:00 | Procedure Note ---
DATE OF PROCEDURE: 11/25/2016 SURGEON: Jared Treviño M.D. PROCEDURE: colonoscopy. ANESTHESIOLOGIST: Juanjose Rosen M.D. INSTRUMENT: Olympus adult flexible colonoscope. INDICATION: Anemia and abdominal pain. REASON FOR PROCEDURE: The procedure, risks, benefits, and possible consequences, including hemorrhage, aspiration, perforation and infection, and alternative treatments, were explained to the patient/legal guardian by Dr. Jared Treviño and the patient/legal guardian understood and accepted these risks. DESCRIPTION OF PROCEDURE: After informed consent was obtained and the patient was adequately sedated, first rectal exam was performed, which was positive for internal hemorrhoids. Then, the scope was advanced from the rectum into the cecum, documented by appendiceal orifice, ileocecal valve, and right upper quadrant palpation. Quality of prep was good. The patient had normal colonoscopy examination. No obvious mass, polyp, diverticulosis, or any pathology was seen. Retroflexion of rectum showed evidence of internal hemorrhoids. SUMMARY OF FINDINGS: Normal colonoscopy examination except for internal hemorrhoids. RECOMMENDATIONS: The patient had a stable hemoglobin and hematocrit. No active gastrointestinal bleeding at this time. The patient had an endoscopy last week and colonoscopy today, which did not show any obvious pathology. CT of the abdomen and pelvis also has not been significantly diagnostic. Plan to treat conservatively, treat for pain, and continue on PPI. Follow up biopsy results from last week. Jared Treviño M.D. DR: MYRIAM JOB#: [id number] CC:
[2016-11-26] VITALS (8 sets, daily range): BP systolic 119–149; BP diastolic 76–100
[2016-11-26] MEDS: metroNIDAZOLE 500mg 100 ML IVPB SCH ×4 (00:23→23:44)
[2016-11-26] MEDS: NovoLOG Insulin Flexpen SUBQ SCH ×5 (00:24→20:59)
[2016-11-26] MEDS: DiphenhydrAMINE 50mg/ml Inj IVP PRN ×3 (05:55→19:44)
[2016-11-26] MEDS: HYDROmorphone 1mg/ml Carpuject IVP PRN ×6 (05:55→22:50)
[2016-11-26 06:45] LABS: EOSINOPHILS % (AUTO) 7.9 % (0.0-3.0); LYMPHOCYTES % (AUTO) 30.1 % (20.0-45.0); MEAN CORPUSCULAR HEMOGLOBIN 31.8 PG (27.0-31.0); MEAN CORPUSCULAR VOLUME 100 FL (80-99); MEAN PLATELET VOLUME 7.3 FL (6.5-10.1); MONOCYTES % (AUTO) 13.1 % (1.0-10.0); NEUTROPHILS % (AUTO) 46.9 % (45.0-75.0); PLATELET COUNT 196 K/UL (150-450); RED BLOOD COUNT 2.82 M/UL (4.20-5.40); RED CELL DISTRIBUTION WIDTH 19.3 % (11.6-14.8); WHITE BLOOD COUNT 5.3 K/UL (4.8-10.8)
[2016-11-26 08:00] LABS: CALCIUM 8.9 mg/dL (8.6-10.2); CREATININE 1.4 mg/dL (0.5-0.9); GLOMERULAR FILTRATION RATE 46.9 mL/min (>60); POTASSIUM 4.5 mEQ/L (3.4-4.9)
[2016-11-26] MEDS: NS w/KCl 20mEq 1,000 ML IV SCH (08:00)
[2016-11-26] MEDS: cefTRIAXone 1 GM in D5W 55 ML IVPB SCH (09:29)
[2016-11-26] MEDS: PARoxetine 20mg tab ORAL SCH (09:29)
[2016-11-26] MEDS: Metoprolol 25mg tab ORAL SCH ×2 (09:29→20:55)
[2016-11-26] MEDS: Heparin 5000 units/ml inj SUBQ SCH ×2 (09:32→20:58)
[2016-11-26] MEDS: Pantoprazole Inj IVP SCH (09:33)
--- NOTE | 2016-11-26 10:30 | GI Progress Note ---
Assessment/Plan Problems: (1) Abdominal pain ICD Codes: R10.9 - Unspecified abdominal pain SNOMED: 01197093 (2) Gastritis ICD Codes: K29.70 - Gastritis, unspecified, without bleeding SNOMED: 1986541 (3) Nausea & vomiting ICD Codes: R11.2 - Nausea with vomiting, unspecified SNOMED: 03462968 (4) Anemia ICD Codes: D64.9 - Anemia, unspecified SNOMED: 268339288 (5) Epigastric pain ICD Codes: R10.13 - Epigastric pain SNOMED: 83307043 Status: stable Status Narrative Discussed with Dr. Treviño. Assessment/Plan s/p EGD >> gastritis, negative for ulcers s/p colonoscopy >> Normal colonoscopy examination except for internal hemorrhoids. APCT >> unremarkable ok for DC per GI standpoint symptomatic treatment stable H&H fu biopsies pain mgmt fu labs Subjective Gastrointestinal/Abdominal: Reports: no symptoms Subjective raedy to go home Objective Last 24 Hour Vital Signs Date Time Temp Pulse Resp B/P Pulse Ox O2 Delivery O2 Flow Rate FiO2 11/26/16 09:29 52 149/90 11/26/16 07:56 97.4 52 18 149/90 98 Room Air 11/26/16 06:25 97.7 11/26/16 04:57 97.7 83 18 125/76 99 Room Air 11/26/16 00:58 97.3 49 17 119/78 98 Room Air 11/25/16 20:32 54 140/89 11/25/16 20:00 97.7 54 17 140/89 96 Room Air 11/25/16 16:00 98.0 46 16 140/78 98 Room Air 11/25/16 12:00 98.0 48 14 130/69 98 Room Air Intake and Output 11/25/16 11/26/16 19:00 07:00 Intake Total 1555 ml 295 ml Output Total 0 ml Balance 1555 ml 295 ml Intake Oral 120 ml 120 ml IV Total 1435 ml 175 ml Output Estimated Blood Loss 0 ml # Voids 5 Laboratory Tests Test 11/26/16 05:15 White Blood Count 5.3 K/UL (4.8-10.8) Red Blood Count 2.82 M/UL (4.20-5.40) L Hemoglobin 9.0 G/DL (12.0-16.0) L Hematocrit 28.0 % (37.0-47.0) L Mean Corpuscular Volume 100 FL (80-99) H Mean Corpuscular Hemoglobin 31.8 PG (27.0-31.0) H Mean Corpuscular Hemoglobin Concent 32.0 G/DL (32.0-36.0) Red Cell Distribution Width 19.3 % (11.6-14.8) H Platelet Count 196 K/UL (150-450) Mean Platelet Volume 7.3 FL (6.5-10.1) Neutrophils (%) (Auto) 46.9 % (45.0-75.0) Lymphocytes (%) (Auto) 30.1 % (20.0-45.0) Monocytes (%) (Auto) 13.1 % (1.0-10.0) H Eosinophils (%) (Auto) 7.9 % (0.0-3.0) H Basophils (%) (Auto) 2.0 % (0.0-2.0) Sodium Level 140 mEQ/L (135-145) Potassium Level 4.5 mEQ/L (3.4-4.9) Chloride Level 104 mEQ/L (98-107) Carbon Dioxide Level 24 mEQ/L (20-30) Anion Gap 12 (5-15) Blood Urea Nitrogen 14 mg/dL (7-23) Creatinine 1.4 mg/dL (0.5-0.9) H Estimat Glomerular Filtration Rate 46.9 mL/min (>60) Glucose Level 89 mg/dL (74-106) Calcium Level 8.9 mg/dL (8.6-10.2) Height (Feet): 5 Weight (Pounds): 135 General Appearance: no apparent distress, alert Cardiovascular: normal rate Respiratory/Chest: normal breath sounds, no respiratory distress Abdominal Exam: normal bowel sounds, non tender, soft Extremities: normal range of motion Jenni Livingston N.P. November 26, 2016 10:30
[2016-11-26] MEDS ORDERED: NS 275ml ONE (17:56)
[2016-11-26] MEDS ORDERED: Tubing IV Secondary IV ONE (17:56)
--- NOTE | 2016-11-26 18:50 | Internal Med Progress Note ---
Subjective Date of Service: November 26, 2016 Physician Name Sammy Fall Attending Physician Nicholas Kovacs MD Current Medications Medications (Trade) Dose Ordered Sig/Argenis Route PRN Reason Start Time Stop Time Status Last Admin Dose Admin Ceftriaxone Sodium 1 gm/ Dextrose 55 ml @ 110 mls/hr Q24H IVPB 11/21/16 09:00 11/28/16 08:59 11/26/16 09:29 Clonidine HCl (Catapres) 0.1 mg Q6H PRN ORAL SBP > 160 11/21/16 15:00 12/21/16 14:59 11/24/16 19:49 Dextrose STAT PRN IV Hypoglycemia 11/20/16 21:15 12/20/16 21:14 Diphenhydramine HCl (Benadryl) 25 mg Q6H PRN IVP Itching 11/22/16 16:45 12/22/16 16:44 11/26/16 13:16 Heparin Sodium (Porcine) (Heparin 5000 units/ml) 5,000 units EVERY 12 HOURS SUBQ 11/22/16 21:00 12/22/16 20:59 11/26/16 09:32 Hydromorphone HCl (Dilaudid) 0.5 mg Q4H PRN IVP Mild Pain (Pain Scale 1-3) 11/21/16 12:35 11/27/16 21:14 Hydromorphone HCl (Dilaudid) 1 mg Q3H PRN IVP PAIN 4-10 11/21/16 13:00 11/28/16 12:59 11/26/16 16:45 Insulin Aspart (NovoLOG) AC+HS SUBQ 11/26/16 06:30 12/26/16 06:29 11/26/16 16:43 Metoprolol Tartrate 25 mg 25 mg Q12HR ORAL 11/21/16 09:00 12/21/16 08:59 11/26/16 09:29 Metronidazole (Flagyl) 100 ml @ 100 mls/hr Q8HR@0000,0800,1600 IVPB 11/21/16 00:00 11/28/16 00:00 11/26/16 16:46 Ondansetron HCl (Zofran) 4 mg Q4H PRN IVP Nausea & Vomiting 11/20/16 21:15 12/20/16 21:14 11/25/16 15:53 Pantoprazole (Protonix) 40 mg DAILY IVP 11/22/16 09:00 12/22/16 08:59 11/26/16 09:33 Paroxetine HCl (Paxil) 20 mg DAILY ORAL 11/21/16 09:00 12/21/16 08:59 11/26/16 09:29 Sodium Chloride (NS w/KCl 20mEq) 1,000 ml @ 75 mls/hr [id number] IV 11/20/16 23:00 12/20/16 22:59 11/26/16 08:00 Allergies: Coded Allergies: NO KNOWN ALLERGIES (Verified Allergy, Unknown, 05/15/16) ROS Limited/Unobtainable: No Constitutional: Reports: no symptoms HEENT: Reports: no symptoms Cardiovascular: Reports: no symptoms Respiratory: Reports: no symptoms Gastrointestinal/Abdominal: Reports: no symptoms Genitourinary: Reports: no symptoms Neurologic/Psychiatric: Reports: no symptoms Subjective 56 YO F admitted with epigastric pain. S/P endoscopy 11/22/16. S/P colonoscopy on 11/25/16 Objective Last Vital Signs Date Time Temp Pulse Resp B/P Pulse Ox O2 Delivery O2 Flow Rate FiO2 11/26/16 17:15 97.3 11/26/16 16:00 55 18 149/100 94 Room Air 11/25/16 09:40 6.0 Laboratory Tests Test 11/26/16 05:15 White Blood Count 5.3 K/UL (4.8-10.8) Red Blood Count 2.82 M/UL (4.20-5.40) L Hemoglobin 9.0 G/DL (12.0-16.0) L Hematocrit 28.0 % (37.0-47.0) L Mean Corpuscular Volume 100 FL (80-99) H Mean Corpuscular Hemoglobin 31.8 PG (27.0-31.0) H Mean Corpuscular Hemoglobin Concent 32.0 G/DL (32.0-36.0) Red Cell Distribution Width 19.3 % (11.6-14.8) H Platelet Count 196 K/UL (150-450) Mean Platelet Volume 7.3 FL (6.5-10.1) Neutrophils (%) (Auto) 46.9 % (45.0-75.0) Lymphocytes (%) (Auto) 30.1 % (20.0-45.0) Monocytes (%) (Auto) 13.1 % (1.0-10.0) H Eosinophils (%) (Auto) 7.9 % (0.0-3.0) H Basophils (%) (Auto) 2.0 % (0.0-2.0) Sodium Level 140 mEQ/L (135-145) Potassium Level 4.5 mEQ/L (3.4-4.9) Chloride Level 104 mEQ/L (98-107) Carbon Dioxide Level 24 mEQ/L (20-30) Anion Gap 12 (5-15) Blood Urea Nitrogen 14 mg/dL (7-23) Creatinine 1.4 mg/dL (0.5-0.9) H Estimat Glomerular Filtration Rate 46.9 mL/min (>60) Glucose Level 89 mg/dL (74-106) Calcium Level 8.9 mg/dL (8.6-10.2) Intake and Output 11/25/16 11/26/16 19:00 07:00 Intake Total 1555 ml 295 ml Output Total 0 ml Balance 1555 ml 295 ml Intake Oral 120 ml 120 ml IV Total 1435 ml 175 ml Output Estimated Blood Loss 0 ml # Voids 5 Objective General: alert, cooperative, no distress, appears stated age Head: normocephalic, without obvious abnormality, atraumatic Eyes: conjunctivae/corneas clear. PERRL, EOM's intact Throat: lips, mucosa, and tongue normal. MMM Neck: supple, symmetrical, trachea midline, and no JVD Lungs: clear to auscultation bilaterally Heart: regular rate and rhythm, S1, S2 normal, no murmur, click, rub or gallop Abdomen: soft, tender to palp epigastric, non-distended, bowel sounds normal; no masses or organomegaly Extremities: extremities normal, atraumatic, no cyanosis or edema Pulses: 2+ and symmetric Skin: skin color, texture, turgor normal; no rashes or lesions Neurologic: grossly normal, no focal deficits Assessment/Plan Problem List: (1) CAD (coronary artery disease) (2) Diabetes mellitus, type II Assessment & Plan: cont novolog sliding scale. (3) HTN (hypertension) Assessment & Plan: cont clonidine and lopressor. (4) Hypercholesteremia (5) Renal failure (6) Nausea & vomiting (7) Epigastric pain Assessment & Plan: S/P endoscopy 11/22/16; S/P colonoscopy on 11/25/16.-See GI note. See surgery note. (8) Breast cancer Assessment/Plan Discharge planning 11/27/16 with home health SAMMY FALL November 26, 2016 18:50
--- NOTE | 2016-11-26 23:45 | Pulmonology Progress Note ---
Assessment/Plan Problems: (1) Abdominal pain (2) Nausea & vomiting (3) CAD (coronary artery disease) (4) Breast cancer (5) HTN (hypertension) Subjective Allergies: Coded Allergies: NO KNOWN ALLERGIES (Verified Allergy, Unknown, 05/15/16) Objective Last 24 Hour Vital Signs Date Time Temp Pulse Resp B/P Pulse Ox O2 Delivery O2 Flow Rate FiO2 11/26/16 23:41 97.4 52 18 140/78 98 Room Air 11/26/16 23:36 97.3 11/26/16 20:55 54 146/81 11/26/16 20:00 97.2 54 18 146/81 97 Room Air 11/26/16 16:00 99.1 55 18 149/100 94 Room Air 11/26/16 12:09 97.3 60 14 140/78 94 Room Air 11/26/16 12:05 97.3 52 12 130/94 99 Room Air 11/26/16 09:29 52 149/90 11/26/16 07:56 97.4 52 18 149/90 98 Room Air 11/26/16 04:57 97.7 83 18 125/76 99 Room Air 11/26/16 00:58 97.3 49 17 119/78 98 Room Air Intake and Output 11/25/16 11/26/16 19:00 07:00 Intake Total 1555 ml 295 ml Output Total 0 ml Balance 1555 ml 295 ml Intake Oral 120 ml 120 ml IV Total 1435 ml 175 ml Output Estimated Blood Loss 0 ml # Voids 5 Laboratory Tests 11/26/16 05:15: White Blood Count 5.3, Red Blood Count 2.82L, Hemoglobin 9.0L, Hematocrit 28.0L , Mean Corpuscular Volume 100H, Mean Corpuscular Hemoglobin 31.8H, Mean Corpuscular Hemoglobin Concent 32.0, Red Cell Distribution Width 19.3H, Platelet Count 196, Mean Platelet Volume 7.3, Neutrophils (%) (Auto) 46.9, Lymphocytes (%) (Auto) 30.1, Monocytes (%) (Auto) 13.1H, Eosinophils (%) (Auto) 7.9H, Basophils (%) (Auto) 2.0, Sodium Level 140, Potassium Level 4.5, Chloride Level 104, Carbon Dioxide Level 24, Anion Gap 12, Blood Urea Nitrogen 14, Creatinine 1.4H, Estimat Glomerular Filtration Rate 46.9, Glucose Level 89, Calcium Level 8.9 Current Medications Medications (Trade) Dose Ordered Sig/Argenis Route PRN Reason Start Time Stop Time Status Last Admin Dose Admin Ceftriaxone Sodium 1 gm/ Dextrose 55 ml @ 110 mls/hr Q24H IVPB 11/21/16 09:00 11/28/16 08:59 11/26/16 09:29 Clonidine HCl (Catapres) 0.1 mg Q6H PRN ORAL SBP > 160 11/21/16 15:00 12/21/16 14:59 11/24/16 19:49 Dextrose STAT PRN IV Hypoglycemia 11/20/16 21:15 12/20/16 21:14 Diphenhydramine HCl (Benadryl) 25 mg Q6H PRN IVP Itching 11/22/16 16:45 12/22/16 16:44 11/26/16 19:44 Heparin Sodium (Porcine) (Heparin 5000 units/ml) 5,000 units EVERY 12 HOURS SUBQ 11/22/16 21:00 12/22/16 20:59 11/26/16 20:58 Hydromorphone HCl (Dilaudid) 0.5 mg Q4H PRN IVP Mild Pain (Pain Scale 1-3) 11/21/16 12:35 11/27/16 21:14 Hydromorphone HCl (Dilaudid) 1 mg Q3H PRN IVP PAIN 4-10 11/21/16 13:00 11/28/16 12:59 11/26/16 22:50 Insulin Aspart (NovoLOG) AC+HS SUBQ 11/26/16 06:30 12/26/16 06:29 11/26/16 20:59 Metoprolol Tartrate 25 mg 25 mg Q12HR ORAL 11/21/16 09:00 12/21/16 08:59 11/26/16 20:55 Metronidazole (Flagyl) 100 ml @ 100 mls/hr Q8HR@0000,0800,1600 IVPB 11/21/16 00:00 11/28/16 00:00 11/26/16 23:44 Ondansetron HCl (Zofran) 4 mg Q4H PRN IVP Nausea & Vomiting 11/20/16 21:15 12/20/16 21:14 11/25/16 15:53 Pantoprazole (Protonix) 40 mg DAILY IVP 11/22/16 09:00 12/22/16 08:59 11/26/16 09:33 Paroxetine HCl (Paxil) 20 mg DAILY ORAL 11/21/16 09:00 12/21/16 08:59 11/26/16 09:29 Sodium Chloride (NS w/KCl 20mEq) 1,000 ml @ 75 mls/hr [id number] IV 11/20/16 23:00 12/20/16 22:59 11/26/16 08:00 WILY KABA November 26, 2016 23:45
[2016-11-27] MEDS: HYDROmorphone 1mg/ml Carpuject IVP PRN ×3 (01:43→09:06)
[2016-11-27] MEDS: NS w/KCl 20mEq 1,000 ML IV SCH (01:43)
[2016-11-27] MEDS: DiphenhydrAMINE 50mg/ml Inj IVP PRN ×2 (01:43→09:06)
[2016-11-27 04:00] VITALS: BP 125/75
[2016-11-27] MEDS: NovoLOG Insulin Flexpen SUBQ SCH (05:58)
[2016-11-27 06:53] LABS: BASOPHILS % (AUTO) 2.2 % (0.0-2.0); EOSINOPHILS % (AUTO) 7.9 % (0.0-3.0); LYMPHOCYTES % (AUTO) 37.9 % (20.0-45.0); MEAN CORPUSCULAR HEMOGLOBIN 31.9 PG (27.0-31.0); MEAN CORPUSCULAR HGB CONC 32.7 G/DL (32.0-36.0); MEAN CORPUSCULAR VOLUME 98 FL (80-99); MEAN PLATELET VOLUME 6.5 FL (6.5-10.1); MONOCYTES % (AUTO) 11.5 % (1.0-10.0); NEUTROPHILS % (AUTO) 40.4 % (45.0-75.0); PLATELET COUNT 185 K/UL (150-450); RED BLOOD COUNT 2.84 M/UL (4.20-5.40); RED CELL DISTRIBUTION WIDTH 19.3 % (11.6-14.8); WHITE BLOOD COUNT 5.8 K/UL (4.8-10.8)
[2016-11-27 07:04] LABS: CALCIUM 9.1 mg/dL (8.6-10.2); CREATININE 1.3 mg/dL (0.5-0.9); GLOMERULAR FILTRATION RATE 51.1 mL/min (>60); POTASSIUM 4.5 mEQ/L (3.4-4.9)
[2016-11-27] MEDS: metroNIDAZOLE 500mg 100 ML IVPB SCH (08:10)
[2016-11-27 08:57] VITALS: BP 137/75
[2016-11-27 09:06] VITALS: BP 125/75
[2016-11-27] MEDS: Pantoprazole Inj IVP SCH (09:06)
[2016-11-27] MEDS: PARoxetine 20mg tab ORAL SCH (09:06)
[2016-11-27] MEDS: Metoprolol 25mg tab ORAL SCH (09:06)
[2016-11-27] MEDS: cefTRIAXone 1 GM in D5W 55 ML IVPB SCH (09:06)
[2016-11-27] MEDS: Heparin 5000 units/ml inj SUBQ SCH (09:12)
[2016-11-27] MEDS ORDERED: PROTONIX40 M1 IVP (10:22)
--- NOTE | 2016-11-27 10:27 | Internal Med Progress Note ---
Subjective Date of Service: November 27, 2016 Physician Name Sammy Fall Attending Physician Nicholas Kovacs MD Current Medications Medications (Trade) Dose Ordered Sig/Argenis Route PRN Reason Start Time Stop Time Status Last Admin Dose Admin Ceftriaxone Sodium 1 gm/ Dextrose 55 ml @ 110 mls/hr Q24H IVPB 11/21/16 09:00 11/28/16 08:59 11/27/16 09:06 Clonidine HCl (Catapres) 0.1 mg Q6H PRN ORAL SBP > 160 11/21/16 15:00 12/21/16 14:59 11/24/16 19:49 Dextrose STAT PRN IV Hypoglycemia 11/20/16 21:15 12/20/16 21:14 Diphenhydramine HCl (Benadryl) 25 mg Q6H PRN IVP Itching 11/22/16 16:45 12/22/16 16:44 11/27/16 09:06 Heparin Sodium (Porcine) (Heparin 5000 units/ml) 5,000 units EVERY 12 HOURS SUBQ 11/22/16 21:00 12/22/16 20:59 11/27/16 09:12 Hydromorphone HCl (Dilaudid) 0.5 mg Q4H PRN IVP Mild Pain (Pain Scale 1-3) 11/21/16 12:35 11/27/16 21:14 Hydromorphone HCl (Dilaudid) 1 mg Q3H PRN IVP PAIN 4-10 11/21/16 13:00 11/28/16 12:59 11/27/16 09:06 Insulin Aspart (NovoLOG) AC+HS SUBQ 11/26/16 06:30 12/26/16 06:29 11/26/16 20:59 Metoprolol Tartrate 25 mg 25 mg Q12HR ORAL 11/21/16 09:00 12/21/16 08:59 11/27/16 09:06 Metronidazole (Flagyl) 100 ml @ 100 mls/hr Q8HR@0000,0800,1600 IVPB 11/21/16 00:00 11/28/16 00:00 11/27/16 08:10 Ondansetron HCl (Zofran) 4 mg Q4H PRN IVP Nausea & Vomiting 11/20/16 21:15 12/20/16 21:14 11/25/16 15:53 Pantoprazole (Protonix) 40 mg DAILY IVP 11/22/16 09:00 12/22/16 08:59 11/27/16 09:06 Paroxetine HCl (Paxil) 20 mg DAILY ORAL 11/21/16 09:00 12/21/16 08:59 11/27/16 09:06 Sodium Chloride (NS w/KCl 20mEq) 1,000 ml @ 75 mls/hr [id number] IV 11/20/16 23:00 12/20/16 22:59 11/27/16 01:43 Allergies: Coded Allergies: NO KNOWN ALLERGIES (Verified Allergy, Unknown, 05/15/16) ROS Limited/Unobtainable: No Constitutional: Reports: no symptoms HEENT: Reports: no symptoms Cardiovascular: Reports: no symptoms Respiratory: Reports: no symptoms Gastrointestinal/Abdominal: Reports: no symptoms Genitourinary: Reports: no symptoms Neurologic/Psychiatric: Reports: no symptoms Subjective 56 YO F admitted with epigastric pain. S/P endoscopy 11/22/16. S/P colonoscopy on 11/25/16 Objective Last Vital Signs Date Time Temp Pulse Resp B/P Pulse Ox O2 Delivery O2 Flow Rate FiO2 11/27/16 09:36 97.5 11/27/16 09:06 52 125/75 11/27/16 08:57 20 95 Room Air 11/25/16 09:40 6.0 Laboratory Tests Test 11/27/16 05:20 White Blood Count 5.8 K/UL (4.8-10.8) Red Blood Count 2.84 M/UL (4.20-5.40) L Hemoglobin 9.0 G/DL (12.0-16.0) L Hematocrit 27.7 % (37.0-47.0) L Mean Corpuscular Volume 98 FL (80-99) Mean Corpuscular Hemoglobin 31.9 PG (27.0-31.0) H Mean Corpuscular Hemoglobin Concent 32.7 G/DL (32.0-36.0) Red Cell Distribution Width 19.3 % (11.6-14.8) H Platelet Count 185 K/UL (150-450) Mean Platelet Volume 6.5 FL (6.5-10.1) Neutrophils (%) (Auto) 40.4 % (45.0-75.0) L Lymphocytes (%) (Auto) 37.9 % (20.0-45.0) Monocytes (%) (Auto) 11.5 % (1.0-10.0) H Eosinophils (%) (Auto) 7.9 % (0.0-3.0) H Basophils (%) (Auto) 2.2 % (0.0-2.0) H Sodium Level 139 mEQ/L (135-145) Potassium Level 4.5 mEQ/L (3.4-4.9) Chloride Level 103 mEQ/L (98-107) Carbon Dioxide Level 25 mEQ/L (20-30) Anion Gap 11 (5-15) Blood Urea Nitrogen 17 mg/dL (7-23) Creatinine 1.3 mg/dL (0.5-0.9) H Estimat Glomerular Filtration Rate 51.1 mL/min (>60) Glucose Level 91 mg/dL (74-106) Calcium Level 9.1 mg/dL (8.6-10.2) Intake and Output 11/26/16 11/27/16 19:00 07:00 Intake Total 1255 ml 1010 ml Balance 1255 ml 1010 ml Intake Oral 200 ml 310 ml IV Total 1055 ml 700 ml # Voids 2 # Bowel Movements 1 Objective General: alert, cooperative, no distress, appears stated age Head: normocephalic, without obvious abnormality, atraumatic Eyes: conjunctivae/corneas clear. PERRL, EOM's intact Throat: lips, mucosa, and tongue normal. MMM Neck: supple, symmetrical, trachea midline, and no JVD Lungs: clear to auscultation bilaterally Heart: regular rate and rhythm, S1, S2 normal, no murmur, click, rub or gallop Abdomen: soft, tender to palp epigastric, non-distended, bowel sounds normal; no masses or organomegaly Extremities: extremities normal, atraumatic, no cyanosis or edema Pulses: 2+ and symmetric Skin: skin color, texture, turgor normal; no rashes or lesions Neurologic: grossly normal, no focal deficits Assessment/Plan Problem List: (1) CAD (coronary artery disease) (2) Diabetes mellitus, type II Assessment & Plan: cont novolog sliding scale. (3) HTN (hypertension) Assessment & Plan: cont clonidine and lopressor. (4) Hypercholesteremia (5) Renal failure (6) Nausea & vomiting (7) Epigastric pain Assessment & Plan: S/P endoscopy 11/22/16; S/P colonoscopy on 11/25/16.-See GI note. See surgery note. (8) Breast cancer Assessment/Plan Discharge planning: Discharge home 11/27/16 with home health. F/U [facility] 2 weeks SAMMY FALL November 27, 2016 10:27
--- NOTE | 2016-11-27 11:33 | GI Progress Note ---
Assessment/Plan Problems: (1) Abdominal pain ICD Codes: R10.9 - Unspecified abdominal pain SNOMED: 08247291 (2) Gastritis ICD Codes: K29.70 - Gastritis, unspecified, without bleeding SNOMED: 7385949 (3) Nausea & vomiting ICD Codes: R11.2 - Nausea with vomiting, unspecified SNOMED: 79401170 (4) Anemia ICD Codes: D64.9 - Anemia, unspecified SNOMED: 738652014 (5) Epigastric pain ICD Codes: R10.13 - Epigastric pain SNOMED: 03628285 Status: stable Status Narrative Discussed with Dr. Treviño. Assessment/Plan s/p EGD >> gastritis, negative for ulcers s/p colonoscopy >> Normal colonoscopy examination except for internal hemorrhoids. APCT >> unremarkable ok for DC per GI standpoint symptomatic treatment stable H&H fu biopsies pain mgmt fu labs Subjective Gastrointestinal/Abdominal: Reports: no symptoms Subjective raedy to go home Objective Last 24 Hour Vital Signs Date Time Temp Pulse Resp B/P Pulse Ox O2 Delivery O2 Flow Rate FiO2 11/27/16 09:36 97.5 11/27/16 09:06 52 125/75 11/27/16 08:57 97.0 52 20 137/75 95 Room Air 11/27/16 04:00 97.5 52 18 125/75 97 Room Air 11/26/16 23:41 97.4 52 18 140/78 98 Room Air 11/26/16 20:55 54 146/81 11/26/16 20:00 97.2 54 18 146/81 97 Room Air 11/26/16 16:00 99.1 55 18 149/100 94 Room Air 11/26/16 12:09 97.3 60 14 140/78 94 Room Air 11/26/16 12:05 97.3 52 12 130/94 99 Room Air Intake and Output 11/26/16 11/27/16 19:00 07:00 Intake Total 1255 ml 1010 ml Balance 1255 ml 1010 ml Intake Oral 200 ml 310 ml IV Total 1055 ml 700 ml # Voids 2 # Bowel Movements 1 Laboratory Tests Test 11/27/16 05:20 White Blood Count 5.8 K/UL (4.8-10.8) Red Blood Count 2.84 M/UL (4.20-5.40) L Hemoglobin 9.0 G/DL (12.0-16.0) L Hematocrit 27.7 % (37.0-47.0) L Mean Corpuscular Volume 98 FL (80-99) Mean Corpuscular Hemoglobin 31.9 PG (27.0-31.0) H Mean Corpuscular Hemoglobin Concent 32.7 G/DL (32.0-36.0) Red Cell Distribution Width 19.3 % (11.6-14.8) H Platelet Count 185 K/UL (150-450) Mean Platelet Volume 6.5 FL (6.5-10.1) Neutrophils (%) (Auto) 40.4 % (45.0-75.0) L Lymphocytes (%) (Auto) 37.9 % (20.0-45.0) Monocytes (%) (Auto) 11.5 % (1.0-10.0) H Eosinophils (%) (Auto) 7.9 % (0.0-3.0) H Basophils (%) (Auto) 2.2 % (0.0-2.0) H Sodium Level 139 mEQ/L (135-145) Potassium Level 4.5 mEQ/L (3.4-4.9) Chloride Level 103 mEQ/L (98-107) Carbon Dioxide Level 25 mEQ/L (20-30) Anion Gap 11 (5-15) Blood Urea Nitrogen 17 mg/dL (7-23) Creatinine 1.3 mg/dL (0.5-0.9) H Estimat Glomerular Filtration Rate 51.1 mL/min (>60) Glucose Level 91 mg/dL (74-106) Calcium Level 9.1 mg/dL (8.6-10.2) Height (Feet): 5 Weight (Pounds): 135 General Appearance: no apparent distress, alert Cardiovascular: normal rate Respiratory/Chest: normal breath sounds, no respiratory distress Abdominal Exam: normal bowel sounds, non tender, soft Extremities: normal range of motion Jenni Livingston N.P. November 27, 2016 11:33
--- NOTE | 2016-11-27 18:23 | Diagnostic Imaging Report ---
APPROVED REPORT CPT Code: 29440 Present Symptoms Shortness of breath BILATERAL: Imaging reveals a patent deep venous system bilaterally. There is no evidence of thrombus within the femoral, popliteal or tibial segments. The greater saphenous veins are also within normal limits. Doppler indicates normal spontaneous flow within these segments.
--- NOTE | 2016-11-27 23:58 | Pulmonology Progress Note ---
Assessment/Plan Problems: (1) Abdominal pain (2) Nausea & vomiting (3) CAD (coronary artery disease) (4) Breast cancer (5) HTN (hypertension) Subjective Allergies: Coded Allergies: NO KNOWN ALLERGIES (Verified Allergy, Unknown, 05/15/16) Objective Last 24 Hour Vital Signs Date Time Temp Pulse Resp B/P Pulse Ox O2 Delivery O2 Flow Rate FiO2 11/27/16 09:36 97.5 11/27/16 09:06 52 125/75 11/27/16 08:57 97.0 52 20 137/75 95 Room Air 11/27/16 04:00 97.5 52 18 125/75 97 Room Air Intake and Output 11/26/16 11/27/16 19:00 07:00 Intake Total 1255 ml 1010 ml Balance 1255 ml 1010 ml Intake Oral 200 ml 310 ml IV Total 1055 ml 700 ml # Voids 2 # Bowel Movements 1 Laboratory Tests 11/27/16 05:20: White Blood Count 5.8, Red Blood Count 2.84L, Hemoglobin 9.0L, Hematocrit 27.7L , Mean Corpuscular Volume 98, Mean Corpuscular Hemoglobin 31.9H, Mean Corpuscular Hemoglobin Concent 32.7, Red Cell Distribution Width 19.3H, Platelet Count 185, Mean Platelet Volume 6.5, Neutrophils (%) (Auto) 40.4L, Lymphocytes (%) (Auto) 37.9, Monocytes (%) (Auto) 11.5H, Eosinophils (%) (Auto) 7.9H, Basophils (%) (Auto) 2.2H, Sodium Level 139, Potassium Level 4.5, Chloride Level 103, Carbon Dioxide Level 25, Anion Gap 11, Blood Urea Nitrogen 17, Creatinine 1.3H, Estimat Glomerular Filtration Rate 51.1, Glucose Level 91, Calcium Level 9.1 WILY KABA November 27, 2016 23:58
== END 2016-11-27 11:00 | disposition home health service (06) | DRG 392 ==
LOC: 4W 18:34
PROC: 0DB68ZX Excision of Stomach, Via Natural or Artificial Opening Endoscopic, Diagnostic (ICD-10-PCS; principal; 2016-11-22 13:32)
PROC: 0DJD8ZZ Inspection of Lower Intestinal Tract, Via Natural or Artificial Opening Endoscopic (ICD-10-PCS; 2016-11-25)
DX: K29.70 Gastritis, unspecified, without bleeding (principal); C50.912 Malignant neoplasm of unspecified site of left female breast; I12.9 Hypertensive chronic kidney disease with stage 1 through stage 4 chronic kidney disease, or unspecified chronic kidney disease; E11.9 Type 2 diabetes mellitus without complications; D64.9 Anemia, unspecified; R10.13 Epigastric pain; I25.10 Atherosclerotic heart disease of native coronary artery without angina pectoris; Z95.5 Presence of coronary angioplasty implant and graft; N18.9 Chronic kidney disease, unspecified; Z79.899 Other long term (current) drug therapy; J45.909 Unspecified asthma, uncomplicated; E78.00 Pure hypercholesterolemia, unspecified; Z98.1 Arthrodesis status; Z87.891 Personal history of nicotine dependence; Z79.4 Long term (current) use of insulin; K64.8 Other hemorrhoids; R11.2 Nausea with vomiting, unspecified
CPT/HCPCS: 36415; 74177; 80048; 80053; 82150; 82378; 82607; 82728; 82746; 82962; 83540; 83550; 83690; 83735; 84100; 84439; 84443; 85025; 85044; 85610; 85730; 87081; 87324; 93970; 94003; 94150; J1815; J2405